=== PATIENT | male | born 1980 | race Caucasian/White ===

== ENCOUNTER → 2020-05-12 14:43 | Outpatient (BNV) | payer MEDICARE, OTHER, SELFPAY | PROVIDERS: PCP Family Medicine; Visit Provider Internal Medicine | DX: E83.119 Hemochromatosis, unspecified (principal) | CPT/HCPCS: 99213; 99214; G2211 ==

== ENCOUNTER 2020-05-21 09:37 | Outpatient (REF) | payer MEDICARE, SELFPAY | END 2020-05-21 09:38 | disposition home or self-care (01) | LOC: HO.BBR 09:37 | PROVIDERS: Visit Provider Internal Medicine | DX: Z13.89 Encounter for screening for other disorder (principal) ==

== ENCOUNTER 2020-05-21 18:05 | Emergency (ER) | payer MEDICARE, SELFPAY ==
[2020-05-21 19:56] VITALS: BP 170/100; PULSE 101; RESP 18; TEMP 37; O2SAT 100; BMI 37.3
--- NOTE | 2020-05-21 20:11 | ED.BACK ---
HPI - Back Pain/Injury General Chief Complaint: Back Pain/Injury Stated Complaint: Back Pain Time Seen by Provider: 05/21/20 20:11 Source: patient Mode of arrival: ambulatory Limitations: no limitations History of Present Illness MD elicited complaint: back pain Pertinent past history: prior back pain Onset (ago): day(s) (several but chronic in nature) Timing: constant Severity: similar to previous episodes Similar Symptoms Previously: Yes Quality: dull and aching Location: lumbar spine Radiation: left upper leg and right upper leg Exacerbating factors: movement and other (cold weather) Relieving factors: none Associated symptoms: denies other symptoms Treatments prior to arrival: NSAIDS Work related injury: No Related Data Home Medications Medication Instructions Recorded Confirmed bupropion HCl 1 tab PO QAM 05/12/20 05/12/20 cyanocobalamin (vitamin B-12) 1,000 mcg PO DAILY 05/12/20 05/12/20 levothyroxine 1 tab PO DAILY 05/12/20 05/12/20 quetiapine PO 05/12/20 sertraline 1 tab PO QAM 05/12/20 05/12/20 Previous Rx's Medication Instructions Recorded diazepam [Valium] 5 mg PO TID PRN #10 tab 05/21/20 lidocaine 1 patch TOPICAL DAILY PRN #10 ea 05/21/20 prednisone 40 mg PO DAILY 5 Days #10 tab 05/21/20 Allergies Allergy/AdvReac Type Severity Reaction Status Date / Time adhesive Allergy Intermediate RASH Unverified 02/07/20 14:58 bee pollen [BEE STINGS] Allergy Unknown UNK Unverified 02/07/20 14:58 mushroom AdvReac Intermediate VIOLENTLY Unverified 02/07/20 14:58 ILL fish Allergy Unknown Uncoded 03/31/15 00:00 mushrooms Allergy Unknown Uncoded 03/31/15 00:00 wine Allergy Unknown Uncoded 03/31/15 00:00 Review of Systems Review of Systems: Constitutional : No Weight loss, No Fever, No Chills, ENT/Mouth : No Hearing loss, No Ear Pain, No Nasal Congestion, No Sinus Pain, No Hoarseness, No sore throat, No Rhinorrhea, No Swallowing Difficulty Cardiovascular : No Chest Pain, No SOB Respiratory : No Cough, No Dyspnea Gastrointestinal : No Nausea, No Vomiting, No Diarrhea, No abdominal Pain, No Hematochezia, No Melena Genitourinary : No Dysuria, No Urinary Frequency, No Hematuria, No Urinary Incontinence, Musculoskeletal : positive back pain Skin : No Skin Lesions, No rash Neuro : No Weakness, No Numbness, No Paresthesias, no loss of bowel or bladder incontinence, no saddle anesthesia PMF Past Medical History Attestation statement: The following information was validated with the patient. Medical History Chronic back pain Degenerative disc disease Depression Hemochromatosis HTN (hypertension) Surgical History History of vasectomy Social History Social History Alcohol intake: former Smoking Status: Current every day smoker Substance Use Type: Marijuana Advance Directives: No Advance Directives Information Provided: Yes Physical Exam Vital Signs: Vital Signs: Last Vital Signs Temp 98.6 F 05/21/20 19:56 Pulse 101 H 05/21/20 19:56 Resp 18 05/21/20 19:56 BP 170/100 H 05/21/20 19:56 Pulse Ox 100 05/21/20 19:56 Body Mass Index 37.3 Appearance: Alert. Oriented X3. No acute distress. Eyes: Pupils equal, round and reactive to light. ENT: Pharynx normal. Neck: Normal inspection. Neck supple. CVS: Normal heart rate and rhythm. Pulses normal. Respiratory: No respiratory distress. Breath sounds normal. Abdomen: Soft and nontender. Back: lower ttp Skin: Skin warm and dry. Normal skin color. Normal skin turgor. Extremities: No lower extremity edema. No calf ttp Neuro: Oriented X 3. No motor deficit. No sensory deficit. bilateral patella 2/4 reflexes SILT inner thigh MDM - Back Pain/Injury MDM Narrative Medical decision making narrative: 39 yo male with chronic back pain no saddle anesthesia no b/b incontinence, no change in chronic issue - no AC therapy, no IVDA will provide supportive medications and refer to pain management Discharge Plan Discharge Clinical Impression: Lumbar back pain Patient Disposition: Home, Self-Care Instructions: Acute Low Back Pain (ED) Additional Instructions: return to ED for any worsening symptoms or concerns Prescriptions: New lidocaine 4 % adhesive patch,medicated 1 patch topical DAILY PRN (Reason: pain) Qty: 10 RF: 0 prednisone 20 mg tablet 40 mg PO DAILY 5 Days Qty: 10 RF: 0 diazepam [Valium] 5 mg tablet 5 mg PO TID PRN (Reason: muscle spasm) Qty: 10 RF: 0 No Action sertraline 100 mg tablet 1 tab PO QAM RF: 0 quetiapine 100 mg tablet PO RF: 0 levothyroxine 25 mcg tablet 1 tab PO DAILY RF: 0 bupropion HCl 150 mg tablet extended release 24 hr 1 tab PO QAM RF: 0 cyanocobalamin (vitamin B-12) 1,000 mcg Capsule 1,000 mcg PO DAILY RF: 0 Referrals: Cecilio Reese MD [Physician] - 1 week
== END 2020-05-21 20:32 | disposition home or self-care (01) ==
PROVIDERS: Emergency Provider Emergency Medicine
DX: M54.5 Low back pain (principal); I10 Essential (primary) hypertension; Z79.899 Other long term (current) drug therapy
CPT/HCPCS: 99284

== ENCOUNTER 2020-06-18 13:11 | Outpatient (REF) | payer MEDICARE, SELFPAY | END 2020-06-18 13:12 | disposition home or self-care (01) | LOC: HO.BBR 13:11 | PROVIDERS: Visit Provider Internal Medicine | DX: Z13.89 Encounter for screening for other disorder (principal) ==

== ENCOUNTER → 2020-06-20 08:47 | Outpatient (BNVA) | payer MEDICARE, SELFPAY | PROVIDERS: PCP Nurse Practitioner Primary Care; Visit Provider Nurse Practitioner Family | DX: M47.27 Other spondylosis with radiculopathy, lumbosacral region (principal); M47.816 Spondylosis without myelopathy or radiculopathy, lumbar region | CPT/HCPCS: 99202 ==

== ENCOUNTER 2020-06-27 14:46 | Outpatient (REF) | payer MEDICARE, SELFPAY ==
--- NOTE | ~2020-06-27 | MR_ITS ---
MR LUMBAR SPINE WITHOUT CONTRAST CLINICAL INFORMATION: Lumbar spondylosis with radiculopathy. COMPARISON: None available. TECHNIQUE: MRI of the lumbar spine was obtained using routine sequences without contrast. FINDINGS: There are 5 nonrib-bearing lumbar-type vertebral bodies. Slight grade 1 retrolisthesis of L2 on L3. Lumbar alignment is otherwise maintained. The vertebral body heights are preserved. There is disc desiccation at the L1-L2, L2-L3, and L5-S1 levels. There is no bone marrow edema. There are no acute fractures. The conus terminates at the L1 level. There is bilateral perinephric stranding. Multilevel endplate osteophytes. L1-L2: Small annular disc bulge and mild bilateral facet arthropathy. No central canal stenosis and no foraminal stenosis. L2-L3: Slight grade 1 retrolisthesis. Moderate bilateral facet arthropathy and ligamentum flavum thickening. No central canal stenosis. Right lateral disc osteophyte protrusion approaches and likely contacts the extraforaminal right L2 nerve root. L3-L4: There is a diffuse annular disc bulge the superimposed right foraminal/extraforaminal disc protrusion that compresses the foraminal and extraforaminal segments of the exiting right L3 nerve root. L4-L5: There is a diffuse annular disc bulge and there is moderate bilateral facet arthropathy and ligamentum flavum thickening. No central canal stenosis. Disc osteophyte and facet arthropathy result in moderate bilateral foraminal stenosis with mild mass effect on the exiting L4 nerve roots bilaterally. L5-S1: There is a shallow right paracentral disc protrusion that results in posterior deflection of the traversing right S1 nerve root within the right subarticular zone and there is a left lateral disc osteophyte protrusion that results in moderate left foraminal stenosis and mass effect on the extraforaminal left L5 nerve root. Mild to moderate right foraminal stenosis as well. MR/MR lumbar spine wo con IMPRESSION: - At L5-S1, there is a shallow right paracentral disc protrusion that results in posterior deflection of the traversing right S1 nerve root within the right subarticular zone and there is a left lateral disc osteophyte protrusion that results in moderate left foraminal stenosis and mass effect on the extraforaminal left L5 nerve root. - At L4-L5, multifactorial degenerative changes result in moderate bilateral foraminal stenosis with mild mass effect on the exiting L4 nerve roots bilaterally. - At L3-L4, there is a right foraminal/extraforaminal disc protrusion that compresses the foraminal and extraforaminal segments of the exiting right L3 nerve root. - At L2-L3 there is slight grade 1 retrolisthesis and a right lateral disc osteophyte protrusion approaches and likely contacts the extraforaminal right L2 nerve root.
== END 2020-06-27 14:47 | disposition home or self-care (01) ==
LOC: HO.MRI 14:46
PROVIDERS: Visit Provider Anesthesiology
DX: M47.27 Other spondylosis with radiculopathy, lumbosacral region (principal); M47.816 Spondylosis without myelopathy or radiculopathy, lumbar region
CPT/HCPCS: 72148

== ENCOUNTER → 2020-07-04 12:46 | Outpatient (BNVA) | payer MEDICARE, SELFPAY | PROVIDERS: PCP Nurse Practitioner Primary Care; Visit Provider Nurse Practitioner Family | DX: M47.816 Spondylosis without myelopathy or radiculopathy, lumbar region (principal); M47.27 Other spondylosis with radiculopathy, lumbosacral region | CPT/HCPCS: 99212 ==

== ENCOUNTER 2020-07-15 13:07 | Outpatient (REF) | payer MEDICARE, SELFPAY | END 2020-07-15 13:08 | disposition home or self-care (01) | LOC: HO.BBR 13:07 | PROVIDERS: Visit Provider Internal Medicine | DX: Z13.89 Encounter for screening for other disorder (principal) ==

== ENCOUNTER → 2020-08-01 13:24 | Outpatient (BNVA) | payer MEDICARE, SELFPAY | PROVIDERS: PCP Nurse Practitioner Primary Care; Visit Provider Nurse Practitioner Family | DX: M47.816 Spondylosis without myelopathy or radiculopathy, lumbar region (principal); M47.27 Other spondylosis with radiculopathy, lumbosacral region; Z79.899 Other long term (current) drug therapy | CPT/HCPCS: 99212 ==

== ENCOUNTER 2020-08-12 11:49 | Outpatient (REF) | payer MEDICARE, SELFPAY | END 2020-08-12 11:50 | disposition home or self-care (01) | LOC: HO.BBR 11:49 | PROVIDERS: Visit Provider Internal Medicine | DX: Z13.89 Encounter for screening for other disorder (principal) ==

== ENCOUNTER 2020-09-25 14:48 | Outpatient (REF) | payer MEDICARE, SELFPAY | END 2020-09-25 14:49 | disposition home or self-care (01) | LOC: HO.BBR 14:48 | PROVIDERS: Visit Provider Internal Medicine | DX: Z13.89 Encounter for screening for other disorder (principal) ==

== ENCOUNTER 2020-11-07 14:38 | Outpatient (REF) | payer MEDICARE, SELFPAY | END 2020-11-07 14:39 | disposition home or self-care (01) | LOC: HO.BBR 14:38 | PROVIDERS: Visit Provider Internal Medicine | DX: Z13.89 Encounter for screening for other disorder (principal) ==

== ENCOUNTER 2020-12-19 11:25 | Outpatient (REF) | payer MEDICARE, SELFPAY | END 2020-12-19 11:26 | disposition home or self-care (01) | LOC: HO.BBR 11:25 | PROVIDERS: Visit Provider Internal Medicine | DX: Z13.89 Encounter for screening for other disorder (principal) ==

== ENCOUNTER 2021-01-30 13:35 | Outpatient (REF) | payer MEDICARE, SELFPAY | END 2021-01-30 13:36 | disposition home or self-care (01) | LOC: HO.BBR 13:35 | PROVIDERS: Visit Provider Internal Medicine | DX: Z13.89 Encounter for screening for other disorder (principal) ==

== ENCOUNTER 2021-03-13 12:46 | Outpatient (REF) | payer MEDICARE, SELFPAY | END 2021-03-13 12:47 | disposition home or self-care (01) | LOC: HO.BBR 12:46 | PROVIDERS: Visit Provider Internal Medicine | DX: Z13.89 Encounter for screening for other disorder (principal) ==

== ENCOUNTER 2021-04-24 12:53 | Outpatient (REF) | payer MEDICARE, SELFPAY | END 2021-04-24 12:54 | disposition home or self-care (01) | LOC: HO.BBR 12:53 | PROVIDERS: Visit Provider Internal Medicine | DX: Z13.89 Encounter for screening for other disorder (principal) ==

== ENCOUNTER 2021-06-05 11:59 | Outpatient (REF) | payer MEDICARE, SELFPAY | END 2021-06-05 12:00 | disposition home or self-care (01) | LOC: HO.BBR 11:59 | PROVIDERS: Visit Provider Internal Medicine | DX: Z13.89 Encounter for screening for other disorder (principal) ==

== ENCOUNTER 2021-07-21 15:42 | Emergency (ER) | payer MEDICARE, SELFPAY ==
--- NOTE | ~2021-07-21 | US_ITS ---
EXAMINATION: US SCROTUM CLINICAL INFORMATION: Testicular pain. COMPARISON: None TECHNIQUE: A sonogram of the scrotum was performed assessing aguilar-scale appearance and color Doppler flow. Spectral Doppler analysis of the arterial and venous flow were performed in the testes bilaterally. FINDINGS: RIGHT: Right testicle measures 3.4 x 2.0 x 2.9 cm, volume 10.3 mL. No focal testicular parenchymal lesions are visualized. Spectral Doppler analysis of the arterial and venous flow is normal in the right testis. Right epididymal head is normal in size. No right hydrocele or varicocele is seen. Right epididymal Doppler flow is normal. LEFT: Left testicle measures 3.8 x 2.3 x 2.7 cm, volume 20.3 mL. There is a subcortical cyst measuring 3 x 2 x 3 mm. No focal testicular parenchymal lesions are visualized. Spectral Doppler analysis of the arterial and venous flow is normal in the left testis. Left epididymal head is normal in size. No left hydrocele or varicocele is seen. Left epididymal Doppler flow is normal. US/US scrotum doppler IMPRESSION: Essentially negative exam. A tiny subcortical left testicular cyst is present.
--- NOTE | ~2021-07-21 | US_ITS ---
EXAMINATION: US SCROTUM CLINICAL INFORMATION: Testicular pain. COMPARISON: None TECHNIQUE: A sonogram of the scrotum was performed assessing aguilar-scale appearance and color Doppler flow. Spectral Doppler analysis of the arterial and venous flow were performed in the testes bilaterally. FINDINGS: RIGHT: Right testicle measures 3.4 x 2.0 x 2.9 cm, volume 10.3 mL. No focal testicular parenchymal lesions are visualized. Spectral Doppler analysis of the arterial and venous flow is normal in the right testis. Right epididymal head is normal in size. No right hydrocele or varicocele is seen. Right epididymal Doppler flow is normal. LEFT: Left testicle measures 3.8 x 2.3 x 2.7 cm, volume 20.3 mL. There is a subcortical cyst measuring 3 x 2 x 3 mm. No focal testicular parenchymal lesions are visualized. Spectral Doppler analysis of the arterial and venous flow is normal in the left testis. Left epididymal head is normal in size. No left hydrocele or varicocele is seen. Left epididymal Doppler flow is normal. US/US scrotum IMPRESSION: Essentially negative exam. A tiny subcortical left testicular cyst is present.
[2021-07-21 17:43] VITALS: BP 153/91; PULSE 103; RESP 18; TEMP 36.7; O2SAT 96; BMI 41.3
--- NOTE | 2021-07-21 17:51 | ED_ITS ---
HPI - Male Genitourinary General Chief complaint: Urogenital-Male Stated complaint: testicle pain Time Seen by Provider: 07/21/21 15:55 Source: patient Mode of arrival: ambulatory Limitations: no limitations History of Present Illness HPI Narrative: Patient is a 40 year old male presenting to the emergency department today with scrotal pain. Patient states that for the last 25 years he has had this issue on and off where his left testicle will have a shoot pain sensation. Patient states this episode has lasted 3 weeks. Patient denies any penile discharge or drainage. Patient denies any dizziness, lightheadedness, abdominal pain, nausea, vomiting, fever, chills, blurry vision, double vision, loss of vision, chest pain, difficulty breathing, shortness of breath, back pain, night sweats, pain with urination, increased urinary frequency, increased urinary urgency, blood in his urine or stool, syncope or a near syncopal episode, recent trauma or falls, bowel incontinence, bladder incontinence, bowel retention, bladder retention, or any other complaints at this time. MD Complaint: testicle pain Onset (ago): week(s) (3) Related Data Home Medications Medication Instructions Recorded Confirmed bupropion HCl 150 mg 24 hr tablet, 1 tab PO QAM 05/12/20 08/01/20 extended release cyanocobalamin (vitamin B-12) 1,000 mcg PO DAILY 05/12/20 08/01/20 1,000 mcg capsule levothyroxine 25 mcg tablet 1 tab PO DAILY 05/12/20 08/01/20 quetiapine 100 mg tablet PO 05/12/20 08/01/20 sertraline 100 mg tablet 1 tab PO QAM 05/12/20 08/01/20 Previous Rx's Medication Instructions Recorded doxycycline hyclate 100 mg tablet 100 mg PO BID 7 Days #14 tab 07/21/21 Allergies Allergy/AdvReac Type Severity Reaction Status Date / Time adhesive Allergy Intermediate RASH Verified 07/21/21 17:43 bee pollen [BEE STINGS] Allergy Unknown UNK Verified 07/21/21 17:43 mushroom AdvReac Intermediate VIOLENTLY Verified 07/21/21 17:43 ILL gabapentin AdvReac Diarrhea Verified 07/21/21 17:43 fish Allergy Unknown unknown Uncoded 06/20/20 09:03 wine Allergy Unknown unknown Uncoded 06/20/20 09:03 Review of Systems Constitutional: Constitutional: Reports no additional constitutional complaints, Denies chills, Denies fever(s) and Denies night sweats Eyes: Eyes: Reports no additional eye complaints, Denies blurry vision, Denies change in vision, Denies diplopia, Denies eye discharge, Denies loss of vision and Denies eye pain ENT: Denies dizziness Cardiovascular: Cardiovascular: Reports no additional cardiovascular complaints, Denies chest pain, Denies lightheadedness, Denies Loss of Consciousness and Denies dyspnea Respiratory: Respiratory: Reports no additional respiratory complaints and Denies dyspnea Gastrointestinal: Gastrointestinal: Reports no additional gastrointestinal complaints, Denies abdominal pain, Denies melena, Denies hematochezia, Denies change in bowel habits and Denies change in stool character Genitourinary: Genitourinary: Reports no additional male genitourinary complaints, Denies hematuria, Denies oliguria, Denies difficulty urinating, Denies dysuria, Reports testicular pain, Denies urinary frequency, Denies urinary hesitancy, Denies urinary incontinence and Denies urinary urgency Musculoskeletal: Musculoskeletal: Reports no additional musculoskeletal complaints, Denies numbness and Denies tingling Neurologic: Denies dizziness, Denies loss of vision, Denies numbness and Denies tingling Psychiatric: Psychiatric: Reports no additional psychiatric complaints Endocrine: Endocrine: Reports no additional endocrine complaints Hematologic/Lymphatic: Hematologic/Lymphatic: Reports no additional hematologic/lymphatic complaints Allergic/Immunologic: Allergic/Immunologic: Reports no additional allergic/immunologic complaints [facility] Past Medical History Attestation statement: The following information was validated with the patient. Source: old records reviewed Medical History Chronic back pain Degenerative disc disease Depression Hemochromatosis HTN (hypertension) Surgical History History of vasectomy Social History Social History Alcohol intake: unknown Substance Use Type: Marijuana Advance Directives: No Advance Directives Information Provided: No Physical Exam Vital Signs: Vital Signs: Last Vital Signs Temp 98.1 F 07/21/21 17:43 Pulse 103 H 07/21/21 17:43 Resp 18 07/21/21 17:43 BP 153/91 H 07/21/21 17:43 Pulse Ox 96 07/21/21 17:43 BMI result Body Mass Index 41.3 Const: General: cooperative, no acute distress, alert and awake Nutritional Appearance: well nourished Orientation/consciousness: patient oriented x3 Limitations: no limitations HENMT: Head: Yes normal to inspection and Yes atraumatic Ears: hearing grossly normal bilaterally and external ears normal General nose exam: Normal external nose present, no nasal discharge noted and no epistaxis Face and sinus: Yes normal facial exam, No abrasion and No laceration Mouth: Normal oral and palatal mucosa present, no drooling and no muffled voice Eyes: General: appearance normal, both eyes and all related structures Periorbital: periorbital findings normal Eyelids: Yes eyelids normal Conjunctivae: conjunctivae normal Pupils: Equal, round and reactive pupils present EOM: EOMs intact bilaterally Neck: Neck: Yes normal visual inspection, Yes full ROM and Yes no lymphadenopathy Chest: Chest palpation & inspection: normal inspection of the chest Resp: Effort & Inspection: normal respiratory effort and able to speak in complete sentences GI: Inspection: Yes normal to inspection : Male General Exam: Yes normal external exam, No edema, No erythema, No inguinal lymphadenopathy, No Genital lesions present and No tenderness Penis: No Genital lesions present Neuro: General: patient oriented x3 and moves all extremities Cranial nerves: Yes Equal, round and reactive pupils present Cognition (Neuro): normal cognition Motor exam (neuro): 5/5 motor strength present throughout Sensory Exam: Normal double simultaneous stimulation for sensation Coordination: [id number] test normal Extrem: General: Yes normal to inspection, Yes full ROM and Yes capillary refill normal Psych: Appearance: grossly normal Mental Status: mental status grossly normal Affect: normal affect Attitude: cooperative Thought process: Normal thought process present Thought content: Normal thought content present Insight: Good insight present (Psych) MDM - Male Genitourinary MDM Narrative Medical decision making narrative: Patient is a 40 year old male presenting to the emergency department today with testicular pain. Patient's physical exam was unremarkable. Patient's urine is still pending at this time. Patient's EKG was unremarkable. Patient's scrotal ultrasound showed a cyst but was otherwise unremarkable. I explained my physical exam findings as well as all test results to the patient. I answered all questions asked by the patient. I explained to the patient that this is very likely epididymitis and that we will treat him accordingly. I stressed the importance of the patient taking his medication as prescribed. I stressed the importance of the patient following up with his primary care provider. I stressed the importance of the patient returning to the emergency department immediately if his symptoms were to worsen or if he were to develop any dizziness, shortness of breath, difficulty breathing, chest pain, blurry vision, loss of vision, nausea, vomiting, abdominal pain, fever, chills, back pain, or any other complaints. Patient verbalized agreement and understanding with this treatment plan and discharge. Differential Diagnosis Differential diagnosis: Likely urinary tract infection, urethritis and epididymitis Medical Records Attestation: I reviewed the patient's medical records. Imaging Data Scrotal US: Attestation: I personally reviewed and interpreted this imaging study as follows: Radiologist's impression: EXAMINATION: US SCROTUM CLINICAL INFORMATION: Testicular pain. COMPARISON: None TECHNIQUE: A sonogram of the scrotum was performed assessing aguilar-scale appearance and color Doppler flow. Spectral Doppler analysis of the arterial and venous flow were performed in the testes bilaterally. FINDINGS: RIGHT: Right testicle measures 3.4 x 2.0 x 2.9 cm, volume 10.3 mL. No focal testicular parenchymal lesions are visualized. Spectral Doppler analysis of the arterial and venous flow is normal in the right testis. Right epididymal head is normal in size. No right hydrocele or varicocele is seen. Right epididymal Doppler flow is normal. LEFT: Left testicle measures 3.8 x 2.3 x 2.7 cm, volume 20.3 mL. There is a subcortical cyst measuring 3 x 2 x 3 mm. No focal testicular parenchymal lesions are visualized. Spectral Doppler analysis of the arterial and venous flow is normal in the left testis. Left epididymal head is normal in size. No left hydrocele or varicocele is seen. Left epididymal Doppler flow is normal. US/US scrotum doppler IMPRESSION: Essentially negative exam. A tiny subcortical left testicular cyst is present. Dictated By: JULIANE KAUR MD Signed By: Electronically signed by JULIANE KAUR MD 07/21/21 7798 Discharge Plan Discharge Clinical Impression: Epididymitis Patient Disposition: Home, Self-Care Instructions: Epididymitis (ED) Additional Instructions: Follow up with your primary care provider. Return to the emergency department immediately if your symptoms worsen or if you develop any dizziness, shortness of breath, difficulty breathing, chest pain, blurry vision, loss of vision, nausea, vomiting, abdominal pain, fever, chills, back pain, or any other complaints. Prescriptions: New doxycycline hyclate 100 mg tablet 100 mg PO BID 7 Days Qty: 14 0RF No Action sertraline 100 mg tablet 1 tab PO QAM 0RF quetiapine 100 mg tablet PO 0RF levothyroxine 25 mcg tablet 1 tab PO DAILY 0RF bupropion HCl 150 mg tablet extended release 24 hr 1 tab PO QAM 0RF cyanocobalamin (vitamin B-12) 1,000 mcg Capsule 1,000 mcg PO DAILY 0RF Print Language: [place] Citizen
--- NOTE | 2021-07-21 18:44 | PC.NURSE ---
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
[2021-07-21 18:54] LABS: Appearance Urine CLEAR; Color Urine YELLOW; Glucose Urine UA NEG (NEG); Leukocyte Esterase Urine NEG (NEG); Nitrite Urine NEG (NEG); Specific Gravity - Urine 1.015 (1.005-1.025); UACC Culture Trigger NO; Urine Blood 1+ (NEG); Urine Ketones NEG (NEG); Urine Protein NEG (NEG-TRACE)
[2021-07-21] MEDS: cefTRIAXone sodium 500 MG, Lidocaine HCl 1 % MPF 1 ML IM (18:54)
[2021-07-21 19:04] LABS: Mucus Urine 1+ /LPF; Squamous Epithelial Cell Urine TRACE /LPF; WBC Urine 0-2 /HPF (0-4)
== END 2021-07-21 19:15 | disposition home or self-care (01) ==
PROVIDERS: Physician Assistant; Emergency Provider Emergency Medicine
DX: N45.1 Epididymitis (principal); N50.812 Left testicular pain; R10.2 Pelvic and perineal pain; Z79.899 Other long term (current) drug therapy
CPT/HCPCS: 76870; 81001; 93975; 96372; 99283; 99284; J0696

== ENCOUNTER 2021-08-18 11:47 | Outpatient (REF) | payer MEDICARE, SELFPAY ==
[2021-08-18 13:09] LABS: Estimated Average Glucose 103 mg/dL; Hemoglobin A1c % 5.2 %
[2021-08-18 13:25] LABS: Alanine Aminotransferase 30 U/L (0-40); Albumin Level 4.5 g/dL (3.5-5.0); Alkaline Phosphatase 127 U/L (39-117); Anion Gap 12 (12-20); Aspartate Amino Transferase 21 U/L (5-37); Bilirubin Total 0.4 mg/dL (0.0-1.0); Blood Urea Nitrogen 11 mg/dL (9-16); Calcium 9.9 mg/dL (8.4-10.2); Carbon Dioxide 25 mmol/L (22-29); Chloride 106 mmol/L (96-108); Cholesterol 180 mg/dL; Estimated Glomerular Filt Rate > 60; Glucose Random 75 mg/dL (60-115); HDL Cholesterol 37 mg/dL; LDL Cholesterol Calculated 108 mg/dl; Potassium 4.4 mmol/L (3.3-5.1); Sodium 139 mmol/L (135-145); Total Protein 7.3 g/dL (6.5-8.0); Triglycerides 179 mg/dL
[2021-08-18 13:26] LABS: Lactate Dehydrogenase 183 U/L (118-273)
[2021-08-18 13:31] LABS: Thyroid Stimulating Hormone 15.72 uIU/mL (0.32-4.0)
[2021-08-18 13:34] LABS: Vitamin B12 840 pg/mL (200-900)
[2021-08-18 14:05] LABS: CT PCR NOT DETECTED (Not Detect.); NG PCR NOT DETECTED (Not Detect.)
[2021-08-19 04:28] LABS: Syphilis Screen Nonreactive (Nonreactive)
[2021-08-20 22:25] LABS: Thyroid Peroxidase Antibodies 460 IU/mL (<9)
== END 2021-08-18 11:48 | disposition home or self-care (01) ==
LOC: HO.LAB 11:47
PROVIDERS: Visit Provider Internal Medicine
DX: Z11.3 Encounter for screening for infections with a predominantly sexual mode of transmission (principal); E03.8 Other specified hypothyroidism; E83.110 Hereditary hemochromatosis; I10 Essential (primary) hypertension
CPT/HCPCS: 80053; 80061; 82607; 83036; 83615; 84443; 86376; 86780; 87491; 87591

== ENCOUNTER → 2021-10-30 14:58 | Outpatient (BNVA) | payer MEDICARE, SELFPAY | PROVIDERS: PCP Internal Medicine; Visit Provider Urology | DX: N50.812 Left testicular pain (principal); N52.9 Male erectile dysfunction, unspecified | CPT/HCPCS: 64425; 99202 ==

== ENCOUNTER 2021-12-29 11:58 | Outpatient (REF) | payer MEDICARE, SELFPAY | END 2021-12-29 11:59 | disposition home or self-care (01) | LOC: HO.BBR 11:58 | PROVIDERS: Visit Provider Internal Medicine | DX: Z13.89 Encounter for screening for other disorder (principal) ==

== ENCOUNTER 2022-01-01 12:55 | Outpatient (REF) | payer MEDICARE, SELFPAY ==
--- NOTE | ~2022-01-01 | US_ITS ---
EXAMINATION: US ABDOMEN COMPLETE CLINICAL INFORMATION: Abdominal pain. COMPARISON: CT abdomen and pelvis 04/30/2015. TECHNIQUE: Real-time imaging of the abdominal viscera. FINDINGS: PANCREAS: Normal. ABDOMINAL AORTA: The proximal, mid, and distal segments are normal in caliber. INFERIOR VENA CAVA: Visualized portions are normal. LIVER: Normal. The liver is normal in size. The liver contour is normal. Parenchymal echogenicity is normal. No focal hepatic lesion. There is no intrahepatic biliary duct dilatation seen. GALLBLADDER: Normal. The gallbladder is physiologically distended without evidence of stones, sludge, polyps, wall thickening or pericholecystic fluid. COMMON BILE DUCT: Normal in caliber measuring 0.3 cm in diameter. RIGHT KIDNEY: Normal. No hydronephrosis. No renal calculi or focal parenchymal lesions. The kidney measures 10.5 cm in maximum dimension. LEFT KIDNEY: There is a 2 cm hypoechoic lesion in the lateral mid left kidney with question small calcification. This may represent a complex cyst when compared with previous CT April 2015. This has internal echoes that are difficult to clear and is increased in size from [address] scan. No hydronephrosis. No renal calculi. The kidney measures 11.0 cm in maximum dimension. SPLEEN: Normal. The spleen measures 9.7 cm in maximum dimension. FREE FLUID: None. US/US abdomen complete IMPRESSION: 2 cm hypoechoic lesion in the lateral midpole of the left kidney. When compared with previous CT from April 2015 this may represent a complex cyst. This is increased in size from [address] Follow up dedicated renal CT or MRI imaging with and without contrast is recommended. Findings will be communicated by the [facility] work flow envelope addresser.
== END 2022-01-01 12:56 | disposition home or self-care (01) ==
LOC: HO.US 12:55
PROVIDERS: Visit Provider Internal Medicine
DX: R10.9 Unspecified abdominal pain (principal)
CPT/HCPCS: 76700

== ENCOUNTER → 2022-02-02 15:27 | Outpatient (BNVA) | payer MEDICARE, SELFPAY | PROVIDERS: PCP Internal Medicine; Visit Provider Urology | DX: N52.01 Erectile dysfunction due to arterial insufficiency (principal); N52.9 Male erectile dysfunction, unspecified | CPT/HCPCS: 99212 ==

== ENCOUNTER 2022-03-30 10:12 | Outpatient (REF) | payer MEDICARE, SELFPAY | END 2022-03-30 10:13 | disposition home or self-care (01) | LOC: HO.BBR 10:12 | PROVIDERS: Visit Provider Internal Medicine | DX: Z13.89 Encounter for screening for other disorder (principal) ==

== ENCOUNTER 2022-04-12 06:03 | Day surgery (SDC) | payer MEDICARE, SELFPAY ==
--- NOTE | 2022-04-09 09:54 | HO.ANESPROP2 ---
Documented by User: Johanny Zafar NP 04/09/22 09:59 HPI - Anesthesia Eval Consult details Narrative: 41yo M for Left Microscopic Denervation Testicle Hemochromatosis with planned Q4 months therapeutic phlebotomies PMFSH Active Problems Active Problems: All Active Problems (Updated 02/02/22 @ 13:53 by Lisa Richardson MD) Orchalgia (Acute) Erectile dysfunction (Acute) Facet arthropathy, lumbar (Acute) Spondylosis of lumbosacral spine with radiculopathy (Acute) Hemochromatosis (Chronic) Past Medical History Medical History (Updated 04/12/22 @ 08:31 by Дмитрий Chapa MD) Chronic back pain Degenerative disc disease Depression Hemochromatosis HTN (hypertension) Family History Family History Mother Diabetes Father Liver cancer Bone cancer Liver disease Surgical History Surgical History History of vasectomy Social History Social History Household Members: Friend(s) Housing: House Are you a primary sub acute care nurse to a significant other at home: No Do you presently have visiting nurse or other home services: No Alcohol intake: unknown Patient Tobacco Use Status: Current everyday Tobacco user Tobacco use type: Cigarette Cigarette Packs Per Day: 1 Cigarettes Per Day: 10 Use of substances other than those prescribed or required for medical reasons: Yes Substance Use Type: Marijuana Are you DNR?: No Advance Directives: No Advance Directives Information Provided: Yes service: No Current occupational status: unemployed Meds Allergies Allergy/AdvReac Type Severity Reaction Status Date / Time adhesive Allergy Intermediate RASH Verified 10/30/21 15:08 bee pollen [BEE STINGS] Allergy Unknown UNK Verified 10/30/21 15:08 mushroom AdvReac Intermediate VIOLENTLY Verified 10/30/21 15:08 ILL gabapentin AdvReac Diarrhea Verified 10/30/21 15:08 fish Allergy Unknown unknown Uncoded 10/30/21 15:08 wine Allergy Unknown unknown Uncoded 10/30/21 15:08 Home Medications Medication Instructions Recorded Confirmed Last Taken Type levothyroxine 25 mcg tablet 1 tab PO DAILY 05/12/20 04/12/22 Unknown History acetaminophen 500 mg tablet 500 mg PO Q6H PRN Pain 08/18/21 04/12/22 Unknown History hydrochlorothiazide 25 mg tablet 25 mg PO DAILY 08/18/21 04/12/22 Unknown History tamsulosin 0.4 mg capsule 0.4 mg PO DAILY 10/30/21 04/12/22 Unknown History Exam Exam Date and Time: April 09, 2022 0954 Pertinent Lab Results Pertinent Lab Results: Laboratory Tests 02/02/22 02/02/22 14:17 14:17 WBC 10.6 Hgb 16.1 Hct 47.2 Plt Count 270 Sodium 141 Potassium 4.2 Chloride 106 Carbon Dioxide 23 BUN 15 Creatinine 0.99 Assessment and Plan Assessment Anesthesia Assessment: Chart Reviewed Documented by User: Дмитрий Chapa MD 04/12/22 08:34 [facility] Past Medical History Medical History (Updated 04/12/22 @ 08:31 by Дмитрий Chapa MD) Chronic back pain Degenerative disc disease Depression Hemochromatosis HTN (hypertension) Family History Family History Mother Diabetes Father Liver cancer Bone cancer Liver disease Family history of problems with anesthesia: No Surgical History Surgical History History of vasectomy History of Problems with Anesthesia: No Social History Social History Household Members: Friend(s) Housing: House Are you a primary sub acute care nurse to a significant other at home: No Do you presently have visiting nurse or other home services: No Alcohol intake: unknown Patient Tobacco Use Status: Current everyday Tobacco user Tobacco use type: Cigarette Cigarette Packs Per Day: 1 Cigarettes Per Day: 10 Use of substances other than those prescribed or required for medical reasons: Yes Substance Use Type: Marijuana Are you DNR?: No Advance Directives: No Advance Directives Information Provided: Yes service: No Current occupational status: unemployed Meds Allergies Allergy/AdvReac Type Severity Reaction Status Date / Time adhesive Allergy Intermediate RASH Verified 10/30/21 15:08 bee pollen [BEE STINGS] Allergy Unknown UNK Verified 10/30/21 15:08 mushroom AdvReac Intermediate VIOLENTLY Verified 10/30/21 15:08 ILL gabapentin AdvReac Diarrhea Verified 10/30/21 15:08 fish Allergy Unknown unknown Uncoded 10/30/21 15:08 wine Allergy Unknown unknown Uncoded 10/30/21 15:08 Home Medications Medication Instructions Recorded Confirmed Last Taken Type levothyroxine 25 mcg tablet 1 tab PO DAILY 05/12/20 04/12/22 Unknown History acetaminophen 500 mg tablet 500 mg PO Q6H PRN Pain 08/18/21 04/12/22 Unknown History hydrochlorothiazide 25 mg tablet 25 mg PO DAILY 08/18/21 04/12/22 Unknown History tamsulosin 0.4 mg capsule 0.4 mg PO DAILY 10/30/21 04/12/22 Unknown History Exam Airway Mallampati Class: IV TM Dist: >3cm Neck ROM: Full Heart: rrr Lungs: clear Assessment and Plan Final Anesthetic Review Family History of Problems with Anesthesia: No History of Problems with Anesthesia: No NPO: Yes ASA Class: II Final Preanesthetic Review: No Changes in Pt Med Stat, Consent Obtained/Reviewed and Anes Risks/Benef Reviewed Procedure Risk: Low Anesthetic Plan Anesthetic Plan: GA Disposition: Standard PACU
[2022-04-12 06:41] VITALS: BMI 36.6
[2022-04-12 06:47] VITALS: BP 122/73; PULSE 82; RESP 16; TEMP 36.2; O2SAT 96
[2022-04-12] MEDS: Lactated Ringers 1,000 ML 100 ML IVCONT (07:00)
[2022-04-12] MEDS: Acetaminophen 325 MG TABLET 650 MG PO (07:33)
--- NOTE | 2022-04-12 08:15 | MHC.SHP ---
Pre-Procedural Eval Section A Date of Service: 04/12/22 The patient is an INPATIENT: No Changes since office visit: No Cold of Flu in the past 2 weeks, No New Medical Problems, No Changes in Medication and No Patient answered all questions The History & Physical has been completed within 30 days and I have reviewed it.: No Section B Chief Complaint: Testicular pain, unspecified Details of Present Illness: Left orchalgia. Responded to injection in office. Here for microscopic denervation. Relevant Family History (Specify if Yes): No Relevant Social History: None Present Medications: see Short Stay Collaborative assessment Medical History: No relevant PMH History of Previous Operations: No relevant previous surgery Allergies: Allergies Allergy/AdvReac Type Severity Reaction Status Date / Time adhesive Allergy Intermediate RASH Verified 10/30/21 15:08 bee pollen [BEE STINGS] Allergy Unknown UNK Verified 10/30/21 15:08 mushroom AdvReac Intermediate VIOLENTLY Verified 10/30/21 15:08 ILL gabapentin AdvReac Diarrhea Verified 10/30/21 15:08 fish Allergy Unknown unknown Uncoded 10/30/21 15:08 wine Allergy Unknown unknown Uncoded 10/30/21 15:08 Review of Systems Sugical H&P ROS: Negative: Constitution, Cardiovascular, Respiratory, Neurological, Psychiatric, Hem-Onc, Allergic/Immunologic, Gastrointestinal, Genitourinary, Musculoskeletal, Integumentary, Endocrine and Eyes/Ears/Nose/Throat Exam Surgical H&P Exam: Normal: HEENT, Normal: Heart, Normal: Lungs, Normal: Extremities, Normal: Abdomen, Normal: Skin and Normal: Neurological Plan Diagnosis/Plan: Unchanged (Left microscopic denervation testicular cord) I have reviewed the history and physical and performed a pertinent physical examination on my patient. No changes have occurred unless specified.
[2022-04-12 10:15] VITALS: BP 97/63; PULSE 75; RESP 16; TEMP 36.1; O2SAT 97
--- NOTE | 2022-04-12 10:15 | W.PM.OPN ---
Operative Note Operative Note Date of Service: 04/12/22 Narrative: PreOperative Diagnosis: left persistent testicular pain Post Operative Diagnosis: Same Procedure: left microscopic inguinal denervation Surgeon: Dr Mario Archibald Anesthesia: General Indications for procedure: Persistent left testicular pain. In the office responded well to local anesthetic infiltration in the cord. Was offered microscopic inguinal cord denervation. Understands this is 80% successful and primary risk is loss of testicle. Procedure: After informed consent was verified the patient was brought to the operating room and placed in a supine position. Anesthesia was administered per protocol. The patient was shaved and prepped and draped in a sterile fashion. Safety pause time-out was performed. Antibiotics had been given. The left inguinal canal was palpated. This was marked and then a 4 cm incision was marked approximately 1 cm distal to the inguinal canal. The skin was infiltrated with local anesthetic. Using a 15 blade skin was incised and dissection was performed in the subcutaneous tissue. Dissection was performed until inguinal cord was isolated. evidence of prior laparoscopic hernia repair noted. The cord was delivered through the incision to the skin surface. A tongue depressor was then used to elevate the cord from the incision. The operating microscope was brought into place. Dissection was then performed on the cord. Muscle fibers surrounding the cord were all dissected. This was performed using bipolar cautery and scissors. The overlying tissue was removed and the cord packets exposed. Fascia was cauterized and dissected from the packet. The vas deferens packet was dissected. The primary vascular packet was then tagged with a vessel loop and retracted from the field. Dissection and denervation were performed on the 3 identified areas including the cremasteric muscle layer, lucille vasal tissues, and the posterior periarterial - lipomatous tissue. Care was taken to leave all veins and feeding arterial vessels intact. Doppler ultrasound was available to assist with identification. Following the dissection and cautery of the posterior periarterial packet the vas deferens packet was identified and the cord was isolated. Using an ocular blade the cord was denervated for approximately 1-1.5 cm. The blade was swept across the surface of the vas deferens small bleeding areas were controlled using bipolar cautery When this was complete the cord was examined. The tongue depressor was removed and the cord allowed to sit in its normal position. The area was irrigated with saline. Reapproximation of deep tissue was performed using interrupted 3-0 Vicryl. Skin was reapposed using a 4-0 running Monocryl. Incisions were closed with Dermabond He tolerated the procedure well and was extubated in operating room and transferred in stable condition to the recovery area.
[2022-04-12 10:20] VITALS: BP 102/64; PULSE 74; RESP 16; O2SAT 100
[2022-04-12 10:25] VITALS: BP 126/49; PULSE 83; RESP 18; O2SAT 99
[2022-04-12 10:30] VITALS: BP 126/81; PULSE 75; RESP 18; TEMP 36.2; O2SAT 99
[2022-04-12] MEDS: Ketorolac Tromethamine 15 MG/ML VIAL IVPUSH (10:30)
[2022-04-12] MEDS: oxyCODONE HCl Immed Release 5 MG TABLET PO (10:30)
[2022-04-12 10:45] VITALS: BP 123/83; PULSE 77; RESP 18; TEMP 36.1; O2SAT 99
== END 2022-04-12 11:32 | disposition home or self-care (01) ==
PROVIDERS: PCP Internal Medicine; Visit Provider Urology
PROC: (CPT 55899; principal; 2022-04-12 08:10)
DX: N50.819 Testicular pain, unspecified (principal); N52.01 Erectile dysfunction due to arterial insufficiency; I10 Essential (primary) hypertension; E83.119 Hemochromatosis, unspecified; G89.29 Other chronic pain; M54.9 Dorsalgia, unspecified; Z79.899 Other long term (current) drug therapy; Z91.040 Latex allergy status; F17.210 Nicotine dependence, cigarettes, uncomplicated; F12.90 Cannabis use, unspecified, uncomplicated
CPT/HCPCS: 55899; 69990; J0690; J1100; J1885; J2250; J2795; J3010

== ENCOUNTER 2022-04-20 10:24 | Outpatient (REF) | payer MEDICARE, SELFPAY ==
--- NOTE | ~2022-04-20 | US_ITS ---
EXAMINATION: US SCROTUM CLINICAL INFORMATION: N50.819 - Testicular pain, unspecified. Additional history from patient notes hysterectomy 04/13/2022. Persistent swelling on left. COMPARISON: Scrotal ultrasound with Doppler 07/21/2021. TECHNIQUE: A sonogram of the scrotum was performed assessing aguilar-scale appearance and color Doppler flow. Spectral Doppler analysis of the arterial and venous flow were performed in the testes bilaterally. FINDINGS: RIGHT: Right testicle measures 3.7 x 1.9 x 2.6 cm, volume 9.4 mL. No focal testicular parenchymal lesions are visualized. Spectral Doppler analysis of the arterial and venous flow is normal in the right testis. Right epididymal head is normal in size. No right hydrocele or varicocele is seen. Right epididymal Doppler flow is normal. LEFT: Left testicle measures 4.2 x 2.4 x 2.9 cm, volume 15.2 mL. No focal testicular parenchymal lesions are visualized. 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 Spectral Doppler analysis of the arterial and venous flow is normal in the left testis. Left epididymal head is normal in size. There is a small left hydrocele. There is a simple cyst in the epididymal head measuring approximately 7 x 4 mm. Question of small hyperechoic scrotal benedict. Left epididymal Doppler flow is normal. US/US scrotum IMPRESSION: 1. No torsion. Normal intratesticular color flow. 2. Small left hydrocele. Small left epididymal head cyst 7 x 4 mm. Probable small left scrotal benedict.
== END 2022-04-20 10:25 | disposition home or self-care (01) ==
LOC: HO.US 10:24
PROVIDERS: PCP Internal Medicine; Visit Provider Urology
DX: N50.819 Testicular pain, unspecified (principal)
CPT/HCPCS: 76870

== ENCOUNTER → 2022-04-22 13:29 | Outpatient (BNVA) | payer MEDICARE, SELFPAY | PROVIDERS: PCP Internal Medicine; Visit Provider Urology | DX: N50.819 Testicular pain, unspecified (principal) | CPT/HCPCS: 99212 ==

== ENCOUNTER 2022-04-26 15:08 | Emergency (ER) | payer MEDICARE, SELFPAY ==
--- NOTE | ~2022-04-26 | CT_ITS ---
EXAMINATION: CT ABDOMEN AND PELVIS WITHOUT CONTRAST CLINICAL INFORMATION: Left inguinal pain COMPARISON: CT abdomen pelvis with IV contrast 04/30/2015 TECHNIQUE: Multidetector volumetric imaging was performed from the superior aspect of the liver through the pubic symphysis. Sagittal and coronal reformatted images were obtained on the technologist's workstation. This CT examination was performed using dose optimization techniques as appropriate, variously including the following: *Automated exposure control *Adjustment of mA and/or kV according to patient size (this includes techniques or standardized protocols for targeted exams where dose is matched to indication/reason for exam; i.e. extremities or head) *Use of iterative reconstruction technique DLP: 1298 mGy-cm FINDINGS: LUNG BASES: The visualized lung bases are unremarkable. LIVER, GALLBLADDER AND BILIARY TREE: The liver is normal in size, shape, and attenuation. No focal hepatic lesion or biliary ductal dilatation is present. The gallbladder is unremarkable with no evidence of radiopaque gallstones, gallbladder wall thickening, or obvious pericholecystic inflammatory changes. PANCREAS: Unremarkable. SPLEEN: Unremarkable. ADRENAL GLANDS: Unremarkable. KIDNEYS AND URETERS: The kidneys are normal in size, shape, and attenuation. No hydronephrosis, hydroureter, or calculi seen. No perinephric stranding. There is 7 mm hypodensity mid pole left kidney cortex. Previously visualized cyst midpole left kidney is not seen at this time. BLADDER: Unremarkable. GASTROINTESTINAL TRACT: There is scattered stool and gas seen throughout the colon without distention. The small bowel loops are normal caliber. Appendix is normal caliber. No inflammatory process seen in the abdomen. ABDOMINAL WALL: No significant hernia is appreciated. LYMPH NODES: Normal. VASCULAR: Unremarkable. PELVIC VISCERA: Surrounding and compressing the left inguinal canal there is a bilobed cystic lesion measuring 7.7 x 5.9 x 9.4 cm in the left inguinal region. There is fat stranding in the surrounding soft tissues. The right inguinal canal is normal. OSSEOUS STRUCTURES: Moderate ventral spondylosis lower dorsal and mild spondylosis mid lumbar spine. CT/CT abdomen pelvis wo IV con IMPRESSION: Moderate size bilateral cystic collection in the left groin surrounding the left inguinal canal likely seroma from previous intervention or injury. The findings are new since previous CT abdomen exam 04/30/2015. Hyperdense lesion in the midpole cortex left kidney question small calcification. Previously visualized cyst midpole left kidney is not seen at this time. Fleischner guidelines were followed.
[2022-04-26 17:31] VITALS: BP 146/97; PULSE 92; RESP 18; TEMP 36.3; O2SAT 97; BMI 35.2
--- NOTE | 2022-04-26 17:31 | ED.GENADULT ---
HPI - General Adult General Chief complaint: General Medical Stated complaint: post surgery swollen area Time Seen by Provider: 04/26/22 23:31 Related Data Home Medications Medication Instructions Recorded Confirmed levothyroxine 25 mcg tablet 1 tab PO DAILY 05/12/20 04/22/22 acetaminophen 500 mg tablet 500 mg PO Q6H PRN Pain 08/18/21 04/12/22 hydrochlorothiazide 25 mg tablet 25 mg PO DAILY 08/18/21 04/22/22 tamsulosin 0.4 mg capsule 0.4 mg PO DAILY 10/30/21 04/22/22 duloxetine 30 mg capsule,delayed 0 mg PO 04/29/22 release Previous Rx's Medication Instructions Recorded tadalafil 10 mg tablet 10 mg PO DAILY sexual activity 90 02/02/22 days #90 tabs hydrocodone 5 mg-acetaminophen 325 1 tab PO Q6H pain 14 days #56 tabs 04/22/22 mg tablet Allergies Allergy/AdvReac Type Severity Reaction Status Date / Time adhesive Allergy Intermediate RASH Verified 04/29/22 09:28 bee pollen [BEE STINGS] Allergy Unknown UNK Verified 04/29/22 09:28 mushroom AdvReac Intermediate VIOLENTLY Verified 04/29/22 09:28 ILL gabapentin AdvReac Diarrhea Verified 04/29/22 09:28 fish Allergy Unknown unknown Uncoded 04/29/22 09:28 wine Allergy Unknown unknown Uncoded 04/29/22 09:28 [facility] Past Medical History Medical History Chronic back pain Degenerative disc disease Depression Hemochromatosis HTN (hypertension) Surgical History History of vasectomy Family History Family History Mother Diabetes Father Liver cancer Bone cancer Liver disease Social History Social History Household Members: Friend(s) Housing: House Are you a primary clinical manager home care to a significant other at home: No Do you presently have visiting nurse or other home services: No Alcohol intake: unknown Patient Tobacco Use Status: Current everyday Tobacco user Tobacco use type: Cigarette Cigarette Packs Per Day: 1 Cigarettes Per Day: 10 Substance Use Type: Marijuana service: No Current occupational status: unemployed Physical Exam ED Vital Signs: BMI result Body Mass Index 35.2 Course Course Course Narrative: 41M p/w testicular swelling after surgery by Dr Hanna on 04/12. Denies fevers, chills, dysuria.....LEFT testicle with swelling at the incision without purulent drainage. Still passing flatus and denies N/V VS Reviewed GEN: NAD HEENT: no acute findings PuL: CTAB CVS: RRR, no murmurs ABD: swelling at lt inguinal jenise for hernia - Labs, CT Discharge Plan Discharge Clinical Impression: Swollen testicle Patient Disposition: Elopement Prescriptions: No Action levothyroxine 25 mcg tablet 1 tab PO DAILY acetaminophen 500 mg Tablet 500 mg PO Q6H PRN (Reason: Pain) hydrochlorothiazide 25 mg Tablet 25 mg PO DAILY tadalafil 10 mg tablet 10 mg PO DAILY 90 Days Qty: 90 0RF hydrocodone-acetaminophen 5-325 mg tablet 1 tab PO Q6H 14 Days Qty: 56 0RF Rx Instructions: Partial Fill upon patient request. tamsulosin 0.4 mg capsule 0.4 mg PO DAILY duloxetine 30 mg capsule,delayed release(/EC) 0 mg PO Discharge Date/Time: 04/27/22 01:06
[2022-04-26 19:34] LABS: MANUAL DIFF FLAG NO
[2022-04-26 19:43] LABS: Basophils Absolute Auto 0.1 X10*3/uL (0.0-0.2); Basophils Percent Auto 0.6 % (0-2); Eosinophils Absolute Auto 0.2 X10*3/uL (0.0-0.4); Eosinophils Percent Auto 1.2 % (0-4); Hematocrit 48.2 % (42.0-52.0); Hemoglobin 16.3 g/dl (14.0-18.0); Imm Gran Abs Auto 0.06 X10*3/uL (0.00-0.03); Imm Gran Pct Auto 0.4 % (0.0-0.4); Lymphocytes Absolute Auto 3.3 X10*3/uL (1.2-4.9); Lymphocytes Percent Auto 20.2 % (20-40); Mean Corpuscular HGB Conc 33.8 g/dl (31.0-36.0); Mean Corpuscular Hemoglobin 30.5 pg (27.0-33.0); Mean Corpuscular Volume 90.1 fL (80.0-98.0); Mean Platelet Volume 9.9 fL (9.4-12.4); Monocytes Percent Auto 6.1 % (2-11); Neutrophils Absolute Auto 11.6 x10*3/uL (2.0-8.3); Neutrophils Percent Auto 71.5 % (45-73); Platelet Count 256 X10*3/uL (160-400); Red Blood Count 5.35 X10*6/uL (4.60-5.80); Red Cell Distribution Width 14.5 % (11.0-16.0); White Blood Count 16.3 X10*3/uL (4.8-10.8)
[2022-04-26 19:56] LABS: Alanine Aminotransferase 21 U/L (0-40); Albumin Level 4.4 g/dL (3.5-5.0); Alkaline Phosphatase 106 U/L (39-117); Anion Gap 14 (12-20); Aspartate Amino Transferase 14 U/L (5-37); Bilirubin Total 0.6 mg/dL (0.0-1.0); Blood Urea Nitrogen 10 mg/dL (9-16); Calcium 9.6 mg/dL (8.4-10.2); Carbon Dioxide 26 mmol/L (22-29); Chloride 106 mmol/L (96-108); Creatinine Clr Calc Pharmacy 131.5; Estimated Glomerular Filt Rate > 60; Glucose Random 85 mg/dL (60-115); Potassium 3.9 mmol/L (3.3-5.1); Sodium 142 mmol/L (135-145); Total Protein 7.1 g/dL (6.5-8.0)
--- NOTE | 2022-04-27 00:52 | PC.NURSE ---
Pt called for triage, pt not in waiting room at this time.
== END 2022-04-27 01:06 | disposition left against medical advice (07) ==
LOC: HO.ED 04-27 00:26
PROVIDERS: Student in an Organized Health Care Education/Training Program; Emergency Provider Emergency Medicine
DX: R10.30 Lower abdominal pain, unspecified (principal); Z79.899 Other long term (current) drug therapy
CPT/HCPCS: 36415; 74176; 80053; 85025; 99281; 99284

== ENCOUNTER → 2022-04-29 09:27 | Outpatient (BNVA) | payer MEDICARE, SELFPAY | PROVIDERS: Visit Provider Nurse Practitioner Family | DX: N99.842 Postprocedural seroma of a genitourinary system organ or structure following a genitourinary system procedure (principal); N50.819 Testicular pain, unspecified | CPT/HCPCS: 99212 ==

== ENCOUNTER 2022-04-30 15:06 | Outpatient (REF) | payer MEDICARE, SELFPAY ==
--- NOTE | ~2022-04-30 | US_ITS ---
EXAMINATION: US SCROTUM CLINICAL INFORMATION: Testicular pain. COMPARISON: 04/20/2022 abdominal ultrasound. TECHNIQUE: A sonogram of the scrotum was performed assessing aguilar-scale appearance and color Doppler flow. Spectral Doppler analysis of the arterial and venous flow were performed in the testes bilaterally. FINDINGS: RIGHT: Right testicle measures 3.8 x 1.8 x 2.9 cm, volume 10.4 mL. A small anechoic cyst measures 0.3 cm. Spectral Doppler analysis of the arterial and venous flow is mildly increased in the right testis. Right epididymal head shows generalized hypoechoic heterogeneity without significant hypervascularity. Trace right hydrocele. Small right varicocele with vessels measuring up to 0.4 cm in maximum width. Mild increased vascularity with Valsalva maneuver. LEFT: Left testicle measures 4.2 x 2.7 x 2.6 cm, volume 15.4 mL. No focal testicular parenchymal lesions are visualized. Spectral Doppler analysis of the arterial and venous flow is normal in the left testis. Left epididymal head shows an anechoic cyst measuring up to 0.8 cm. There is generalized hypoechoic heterogeneity of the head and tail without significant hypervascularity. Moderate to large left hydrocele. US/US scrotum IMPRESSION: 1. Mild asymmetric hypervascularity in the right testis. Mild right arthritis cannot be excluded. 2. Interval increase in left hydrocele now moderate to large in size. 3. Small left varicocele.
== END 2022-04-30 15:07 | disposition home or self-care (01) ==
LOC: HO.US 15:06
PROVIDERS: Visit Provider Nurse Practitioner Family
DX: N50.819 Testicular pain, unspecified (principal)
CPT/HCPCS: 76870

== ENCOUNTER → 2022-05-14 11:21 | Outpatient (BNVA) | payer MEDICARE, SELFPAY | PROVIDERS: Visit Provider Urology | DX: Z13.89 Encounter for screening for other disorder (principal) | CPT/HCPCS: 99212 ==

== ENCOUNTER 2022-06-30 10:23 | Outpatient (REF) | payer MEDICARE, SELFPAY | END 2022-06-30 10:24 | disposition home or self-care (01) | LOC: HO.BBR 10:23 | PROVIDERS: Visit Provider Internal Medicine | DX: Z13.89 Encounter for screening for other disorder (principal) ==

== ENCOUNTER 2022-07-21 12:43 | Outpatient (REF) | payer MEDICARE, SELFPAY ==
[2022-07-21 16:59] LABS: TSH reflex Free T4 6.05 uIU/mL (0.32-4.0)
[2022-07-21 17:34] LABS: Free T4 (Free Thyroxine) 1.05 ng/dL (0.71-1.85)
[2022-07-27 17:24] LABS: Testosterone, Free 82.5 pg/mL (35.0-155.0); Testosterone, Total 519 ng/dL (250-1100)
== END 2022-07-21 12:44 | disposition home or self-care (01) ==
LOC: HO.LAB 12:43
PROVIDERS: Visit Provider Urology
DX: N50.819 Testicular pain, unspecified (principal); R68.82 Decreased libido; N52.9 Male erectile dysfunction, unspecified; Z79.899 Other long term (current) drug therapy
CPT/HCPCS: 36415; 84402; 84403; 84439; 84443; 99212

== ENCOUNTER → 2022-08-12 15:44 | Outpatient (BNVA) | payer MEDICARE, SELFPAY | PROVIDERS: Visit Provider Urology | DX: R68.82 Decreased libido (principal); N52.9 Male erectile dysfunction, unspecified | CPT/HCPCS: Q3014 ==

== ENCOUNTER 2022-09-20 05:53 | Day surgery (SDC) | payer MEDICARE, SELFPAY ==
[2022-09-16 13:34] VITALS: BMI 36.6
--- NOTE | 2022-09-17 10:24 | P.CONAN_ITS ---
Documented by User: Johanny Zafar NP 09/17/22 10:25 HPI - Anesthesia Eval Consult details Narrative: 41yo M for Left Epididymectomy s/p Denervation Testicle 03/2022 with GA-LMA 5 Hemochromatosis with planned Q4 months therapeutic phlebotomies PMFSH Active Problems Active Problems: All Active Problems (Updated 09/16/22 @ 13:25 by Dina Vu RN) Hemochromatosis (Chronic) Spondylosis of lumbosacral spine with radiculopathy (Acute) Facet arthropathy, lumbar (Acute) Erectile dysfunction (Acute) Orchalgia (Acute) Hypothyroid obesity (Acute) Hypothyroid obesity (Acute) Seroma of genitourinary system after genitourinary system procedure (Acute) Low libido (Acute) Past Medical History Medical History Chronic back pain Degenerative disc disease Depression Hemochromatosis HTN (hypertension) Hypothyroid Family History Family History Mother Diabetes Father Liver cancer Bone cancer Liver disease Family history of problems with anesthesia: No Surgical History Surgical History History of back surgery History of surgery History of vasectomy History of Problems with Anesthesia: No Social History Social History (Updated 09/20/22 @ 07:48 by Tiana Hernandez MD) Household Members: Friend(s) Housing: House Are you a primary health care facility administrator to a significant other at home: No Do you presently have visiting nurse or other home services: No Alcohol intake: unknown Patient Tobacco Use Status: Current everyday Tobacco user Tobacco use type: Cigarette Cigarette Packs Per Day: 1 Cigarettes Per Day: 10 Substance Use Type: Marijuana service: No Current occupational status: unemployed Meds Allergies Allergy/AdvReac Type Severity Reaction Status Date / Time adhesive Allergy Intermediate RASH Verified 09/20/22 06:08 bee pollen [BEE STINGS] Allergy Mild Swelling Verified 09/20/22 06:08 gabapentin AdvReac Intermediate Diarrhea Verified 09/20/22 06:08 mushroom AdvReac Intermediate VIOLENTLY Verified 09/20/22 06:08 ILL fish AdvReac Intermediate Diarrhea Uncoded 09/20/22 06:08 wine AdvReac Intermediate Diarrhea Uncoded 09/20/22 06:08 Home Medications Medication Instructions Recorded Confirmed Last Taken Type levothyroxine 25 mcg tablet 1 tab PO DAILY 05/12/20 09/20/22 Unknown History acetaminophen 500 mg tablet 500 mg PO Q6H PRN Pain 08/18/21 09/20/22 Unknown History hydrochlorothiazide 25 mg tablet 25 mg PO DAILY 08/18/21 09/20/22 Unknown History Exam Exam Date and Time: September 17, 2022 1024 Height,Weight and Vital Signs: Height 6 ft Weight 122.47 kg Pertinent Lab Results Pertinent Lab Results: Laboratory Tests 04/26/22 08/02/22 19:31 13:16 WBC 10.1 Hgb 15.6 Hct 46.6 Plt Count 247 Sodium 142 Potassium 3.9 Chloride 106 Carbon Dioxide 26 BUN 10 Creatinine 0.96 Assessment and Plan Final Anesthetic Review Family History of Problems with Anesthesia: No History of Problems with Anesthesia: No Documented by User: Tiana Hernandez MD 09/20/22 07:50 HPI - Anesthesia Eval Consult details Narrative: 41yo M for Left Epididymectomy s/p Denervation Testicle 03/2022 with GA-LMA 5 Hemochromatosis with planned Q4 months therapeutic phlebotomies. Last 05/2022 [facility] Active Problems Active Problems: All Active Problems (Updated 09/20/22 @ 13:25 by Tiana Hernandez MD) Hemochromatosis (Chronic) Spondylosis of lumbosacral spine with radiculopathy (Acute) Facet arthropathy, lumbar (Acute) Erectile dysfunction (Acute) Orchalgia (Acute) Hypothyroid obesity (Acute) Hypothyroid obesity (Acute) Seroma of genitourinary system after genitourinary system procedure (Acute) Low libido (Acute) Denies [facility] Past Medical History Medical History Chronic back pain Degenerative disc disease Depression Hemochromatosis HTN (hypertension) Hypothyroid Family History Family History Mother Diabetes Father Liver cancer Bone cancer Liver disease Surgical History Surgical History History of back surgery History of surgery History of vasectomy Social History Social History (Updated 09/20/22 @ 07:48 by Tiana Hernandez MD) Household Members: Friend(s) Housing: House Are you a primary health care facility administrator to a significant other at home: No Do you presently have visiting nurse or other home services: No Alcohol intake: unknown Patient Tobacco Use Status: Current everyday Tobacco user Tobacco use type: Cigarette Cigarette Packs Per Day: 1 Cigarettes Per Day: 10 Substance Use Type: Marijuana service: No Current occupational status: unemployed Meds Allergies Allergy/AdvReac Type Severity Reaction Status Date / Time adhesive Allergy Intermediate RASH Verified 09/20/22 06:08 bee pollen [BEE STINGS] Allergy Mild Swelling Verified 09/20/22 06:08 gabapentin AdvReac Intermediate Diarrhea Verified 09/20/22 06:08 mushroom AdvReac Intermediate VIOLENTLY Verified 09/20/22 06:08 ILL fish AdvReac Intermediate Diarrhea Uncoded 09/20/22 06:08 wine AdvReac Intermediate Diarrhea Uncoded 09/20/22 06:08 Home Medications Medication Instructions Recorded Confirmed Last Taken Type levothyroxine 25 mcg tablet 1 tab PO DAILY 05/12/20 09/20/22 Unknown History acetaminophen 500 mg tablet 500 mg PO Q6H PRN Pain 08/18/21 09/20/22 Unknown History hydrochlorothiazide 25 mg tablet 25 mg PO DAILY 08/18/21 09/20/22 Unknown History Exam Height,Weight and Vital Signs: Height 6 ft Weight 122.47 kg Vital Signs Temp Pulse Resp BP Pulse Ox O2 Del Method 09/20/22 06:15 97.5 F 84 15 138/78 94 Room Air Airway Mallampati Class: III TM Dist: >3cm Neck ROM: Full Loose/Missing/Broken Teeth: Yes (Many missing. Poor dentition. States none loose but almost all broken) Heart: RRR. Lungs: CTAB. Distant Assessment and Plan Assessment Anesthesia Assessment: Anesthesia Plan Discussed and Chart Reviewed Final Anesthetic Review NPO: Yes ASA Class: III Final Preanesthetic Review: No Changes in Pt Med Stat, Meds/Allgs Chart Reviewed, Consent Obtained/Reviewed and Anes Risks/Benef Reviewed Patient Risk: Intermediate Procedure Risk: Low Assessment/Block/Sedation in SS: Assess/Block/Sedation-SS Anesthetic Plan Anesthetic Plan: GA Disposition: Standard PACU
[2022-09-20 06:08] VITALS: BMI 37.3
[2022-09-20 06:15] VITALS: BP 138/78; PULSE 84; RESP 15; TEMP 36.4; O2SAT 94
[2022-09-20] MEDS: Lactated Ringers 1,000 ML 100 ML IVCONT (06:31)
--- NOTE | 2022-09-20 07:54 | MHC.SHP ---
Pre-Procedural Eval Section A Date of Service: 09/20/22 The patient is an INPATIENT: No Changes since office visit: No Cold of Flu in the past 2 weeks, No New Medical Problems, No Changes in Medication and No Patient answered all questions The History & Physical has been completed within 30 days and I have reviewed it.: Yes Section B Chief Complaint: Testicular pain, unspecified Allergies: Allergies Allergy/AdvReac Type Severity Reaction Status Date / Time adhesive Allergy Intermediate RASH Verified 09/20/22 06:08 bee pollen [BEE STINGS] Allergy Mild Swelling Verified 09/20/22 06:08 gabapentin AdvReac Intermediate Diarrhea Verified 09/20/22 06:08 mushroom AdvReac Intermediate VIOLENTLY Verified 09/20/22 06:08 ILL fish AdvReac Intermediate Diarrhea Uncoded 09/20/22 06:08 wine AdvReac Intermediate Diarrhea Uncoded 09/20/22 06:08 Review of Systems Sugical H&P ROS: Negative: Constitution, Cardiovascular, Respiratory, Neurological, Psychiatric, Hem-Onc, Allergic/Immunologic, Gastrointestinal, Genitourinary, Musculoskeletal, Integumentary, Endocrine and Eyes/Ears/Nose/Throat Exam Surgical H&P Exam: Normal: HEENT, Normal: Heart, Normal: Lungs, Normal: Extremities, Normal: Abdomen, Normal: Skin and Normal: Neurological Plan Diagnosis/Plan: Unchanged (left epididyectomy) I have reviewed the history and physical and performed a pertinent physical examination on my patient. No changes have occurred unless specified. Time Spent With Patient Time: Total time managing care of this patient today ____ minutes.
--- NOTE | 2022-09-20 09:15 | W.PM.OPN ---
Operative Note Operative Note Date of Service: 09/20/22 Narrative: PreOperative Diagnosis: left persistent epididymal pain Post Operative Diagnosis: above Procedure: left epididymectomy Surgeon: Dr Mario Archibald Anesthesia: general Indications for procedure: persistent pain on left testicle particularly on epididymis. Would like to move ahead with left epididymi ectomy. Understands there is a chance this will not resolve the pain. Also is aware the primary risk of the procedure is loss of the left testicle. Procedure: After informed consent was verified the patient was brought to the operating room and placed in a supine position. Anesthesia was administered per protocol. The patient was prepped and draped in a sterile fashion. Safety pause time-out was performed. Antibiotics being given. 3 cm trans scrotal incision on the left scrotum was marked and local anesthetic placed. Using a 15 blade incision was taken down through the skin. Bovie dissection was used to enter the tunica vaginalis. The testicle was delivered from the scrotum. Of note there was fat deposition along the epididymis. This is unusual and may be an inflammatory response. The vas was palpated and the convoluted portion the overlying tissue was divided and the of as isolated with a [place]. It was divided the junction between the convoluted straight portion vas proximally. Dissection then took place following the vas in an antegrade fashion. This was taken down till we reached the approximate beginning of the head of the epididymis. At this point we dissected the tail of the epididymis free from the fat that was surrounding it and divided the overlying tissue. A stay suture was placed through the tail of the epididymis and used to allow is to elevate the epididymal tail. The epididymal tail was then carefully dissected. We switched between the head of the epididymis in the tail of the epididymis is we tried to separate the vas from the surrounding inflamed tissue. At approximately 1/3 distance from the head of the epididymis we encountered small feeding arterial vessel. This was isolated and a 3-0 stop time was placed. The vessel was divided. The vas was freed tile E and handed off the field. The testicle was reexamined and appeared to be normal caliber. Testicle was placed back into the scrotum after any small areas of bleeding and been addressed. The tunica was closed with a running 3-0 Vicryl suture. Skin was closed with interrupted 4-0 chromic sutures. Patient tolerated the procedure well was extubated in operating room transferred in stable condition to recovery area. Pathology: left epididymis Drains: []
[2022-09-20 09:18] VITALS: BP 166/65; PULSE 91; RESP 16; TEMP 36.6; O2SAT 97
[2022-09-20 09:23] VITALS: BP 118/75; PULSE 82; RESP 16; O2SAT 97
[2022-09-20 09:28] VITALS: BP 121/78; PULSE 83; RESP 16; O2SAT 97
[2022-09-20 09:33] VITALS: BP 123/79; PULSE 83; RESP 16; O2SAT 97
[2022-09-20] MEDS: oxyCODONE HCl Immed Release 5 MG TABLET PO (09:40)
[2022-09-20] MEDS: Acetaminophen 325 MG TABLET 975 MG PO (09:40)
[2022-09-20 09:48] VITALS: BP 119/79; PULSE 78; RESP 16; TEMP 36.4; O2SAT 97
== END 2022-09-20 10:34 | disposition home or self-care (01) ==
PROVIDERS: Visit Provider Urology
PROC: (CPT 54860; principal; 2022-09-20 07:30)
DX: N50.812 Left testicular pain (principal); I10 Essential (primary) hypertension; F17.210 Nicotine dependence, cigarettes, uncomplicated
CPT/HCPCS: 54860; 88304; J0690; J1100; J1885; J2370; J2405; J2795; J3010

== ENCOUNTER → 2022-09-27 15:02 | Outpatient (BNVA) | payer MEDICARE, SELFPAY | PROVIDERS: PCP Nurse Practitioner Family; Visit Provider Urology | DX: S30.22XA Contusion of scrotum and testes, initial encounter (principal) | CPT/HCPCS: 99212 ==

== ENCOUNTER → 2022-10-05 09:35 | Outpatient (BNVA) | payer MEDICARE, SELFPAY | PROVIDERS: PCP Nurse Practitioner Family; Visit Provider Urology | DX: C61 Malignant neoplasm of prostate (principal) | CPT/HCPCS: 99212 ==

== ENCOUNTER 2022-10-11 13:28 | Outpatient (REF) | payer MEDICARE, SELFPAY ==
--- NOTE | ~2022-10-11 | US_ITS ---
EXAMINATION: US SCROTUM CLINICAL INFORMATION: Contusion of scrotum and testis. Post left epididymal resection. Scrotal swelling.. COMPARISON: None available. TECHNIQUE: A sonogram of the scrotum was performed assessing aguilar-scale appearance and color Doppler flow. Spectral Doppler analysis of the arterial and venous flow were performed in the testes bilaterally. FINDINGS: RIGHT: Right testicle measures 3.9 x 1.8 x 2.6 cm, volume 9 mL. No focal testicular parenchymal lesions are visualized. Spectral Doppler analysis of the arterial and venous flow is normal in the right testis. Right epididymal head is normal in size. The tail of the right epididymis appears prominent but similar to previous exam. Small right hydrocele. No right varicocele is seen. Right epididymal Doppler flow is normal. LEFT: Left testicle measures 4.1 x 2.7 x 3.1 cm, volume 18 mL. Small testicular cyst measuring 4 x 4 x 3 mm. This is similar to previous exam. No other focal testicular parenchymal lesions are visualized. Spectral Doppler analysis of the arterial and venous flow is seen in the left testis however color and Doppler signal is slightly decreased on the left compared to the right. This is probably due to the large hematoma. Heterogeneous collection around the left testicle suggestive of a large hematocele and scrotal hematoma US/US scrotum IMPRESSION: Large left hematocele and scrotal hematoma. Small stable 3 x 4 mm left testicular cyst. Findings will be communicated by the [place] work flow cloth mercerizer operator.
== END 2022-10-11 13:29 | disposition home or self-care (01) ==
LOC: HO.US 13:28
PROVIDERS: PCP Nurse Practitioner Family; Visit Provider Urology
DX: S30.22XA Contusion of scrotum and testes, initial encounter (principal)
CPT/HCPCS: 76870

== ENCOUNTER → 2022-10-12 09:40 | Outpatient (BNVA) | payer MEDICARE, SELFPAY | PROVIDERS: PCP Nurse Practitioner Family; Visit Provider Urology ==

== ENCOUNTER 2022-10-21 15:27 | Outpatient (REF) | payer OTHER, SELFPAY ==
--- NOTE | ~2022-10-21 | US_ITS ---
EXAMINATION: US SCROTUM CLINICAL INFORMATION: Contusion of the scrotum and testes.. COMPARISON: 10/11/2022 TECHNIQUE: A sonogram of the scrotum was performed assessing aguilar-scale appearance and color Doppler flow. Spectral Doppler analysis of the arterial and venous flow were performed in the testes bilaterally. FINDINGS: RIGHT: Right testicle measures 3.6 x 1.9 x 2.7 cm, volume 9.7 mL. No focal testicular parenchymal lesions are visualized. Spectral Doppler analysis of the arterial and venous flow is normal in the right testis. Right epididymal head is normal in size. No right hydrocele or varicocele is seen. Right epididymal Doppler flow is normal. LEFT: Left testicle measures 3 x 2.2 x 2.8 cm, volume 9.7 mL. 0.3 cm cyst in the peripheral parenchyma. No additional testicular parenchymal lesions are visualized. Spectral Doppler analysis of the arterial and venous flow is normal in the left testis. Left epididymis has been removed. No left hydrocele. Small varicocele. Significant improvement of the prior hematoma. US/US scrotum IMPRESSION: Small left varicocele. Tiny cyst in the left testicle. Improvement of the hematoma.
== END 2022-10-21 15:28 | disposition home or self-care (01) ==
LOC: HO.US 15:27
PROVIDERS: PCP Nurse Practitioner Family; Visit Provider Urology
DX: S30.22XA Contusion of scrotum and testes, initial encounter (principal)
CPT/HCPCS: 76870

== ENCOUNTER → 2022-11-16 10:19 | Outpatient (BNVA) | payer OTHER, SELFPAY | PROVIDERS: Visit Provider Urology | DX: N50.812 Left testicular pain (principal); N52.9 Male erectile dysfunction, unspecified | CPT/HCPCS: 99212 ==

== ENCOUNTER 2023-01-11 14:40 | Outpatient (REF) | payer OTHER, SELFPAY | END 2023-01-11 14:41 | disposition home or self-care (01) | LOC: HO.BBR 14:40 | PROVIDERS: PCP Nurse Practitioner Family; Visit Provider Internal Medicine | DX: Z13.89 Encounter for screening for other disorder (principal) ==

== ENCOUNTER 2023-02-09 10:20 | Outpatient (AMB) | payer OTHER, SELFPAY ==
[2023-02-09 10:32] VITALS: BP 128/86; PULSE 107; RESP 12; TEMP 36.5; O2SAT 98; BMI 36.8
--- NOTE | 2023-02-09 10:32 | MHC.PC.OV ---
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 Patient states that he would like to see someone and get a referral for his hearing due to being told at last physical that he should see someone. Patient states that he is being seeing by Oncology at [facility] [place] and was told he would need a colonoscopy done and would like a referral to Gastro as well. Senior Network Administrator Required: No Accompanied by: Self / Same As Patient Allergies adhesive Allergy (Intermediate, Verified 02/09/23 11:13) RASH bee pollen [BEE STINGS] Allergy (Mild, Verified 02/09/23 11:13) Swelling gabapentin Adverse Reaction (Intermediate, Verified 02/09/23 11:13) Diarrhea mushroom Adverse Reaction (Intermediate, Verified 02/09/23 11:13) VIOLENTLY ILL fish Adverse Reaction (Intermediate, Uncoded 02/09/23 11:13) Diarrhea wine Adverse Reaction (Intermediate, Uncoded 02/09/23 11:13) Diarrhea Tobacco use date assessed: 02/09/23 Dental Screening Dental Screen Date: 02/09/23 Did you have a dental visit in the last 12 months?: No Did you have a dental problem in the last 6 months where you did not have access to dental care?: No Was dental information given to patient?: Yes HPI HPI Comments History of Present Illness Details 42-year-old male presents to establish care. He notes he was last evaluated by his former PCP in 2016. He has been utilizing urgent care. He notes he is not on prescription medications. He states he took psychotropic medications between 2018 and 2019. He states was was also on HCTZ and levothyroxine until 05/2022. He stopped taking the medications because he could not afford healthcare cost. He states he still cannot afford healthcare or copays for his prescription. He notes he came to establish care because his health plan, [employer], requested that he needs an annual physical exam to be eligible for coverage. He has past medical history significant for hypertension, hypothyroidism, anxiety, depression, hereditary hemochromatosis, testicular pain, and COPD. He has h/o SI and ECT treatments. He is followed by Dr. Richardson, Hematology/Oncology. He had CBC and iron profile blood work done last month. He is also followed by urology. He had a positive response to the PHQ-9 question regarding Thoughts that you would be better off or of hurting yourself in some way. He notes that he is an inbreed and therefore he believes he was never meant to be alive. He states that no one likes me, no one wants to do anything with me. No one likes the way i think. He states he lost his marriage and children because of the way i think. He denies SI/HI at this time, denies any plans of committing suicide, and does not contracts for safety. He states his last SI was a week ago. ? [facility] Medical History (Updated 02/09/23 @ 11:50 by Lauren Marcial CNP) History of substance abuse Anxiety Alcoholism Arthritis Thyroid disease COPD (chronic obstructive pulmonary disease) Irritable bowel syndrome Hypothyroid Depression Degenerative disc disease HTN (hypertension) Chronic back pain Hemochromatosis Surgical History History of epididymectomy History of back surgery History of surgery History of vasectomy Family History Mother Diabetes Father Liver cancer Bone cancer Liver disease Social History Household Members: Friend(s) Housing: House Are you a primary physician assistant primary care to a significant other at home: No Do you presently have visiting nurse or other home services: No Alcohol intake: unknown Patient Tobacco Use Status: Current everyday Tobacco user Tobacco use type: Cigarette Cigarette Packs Per Day: 1 Cigarettes Per Day: 10 e-Cigarette/Vaping Use: Never Used Substance Use Type: Marijuana service: No Current occupational status: disabled Cognitive needs: No Hearing needs: Yes Vision needs: Yes Questionnaire PHQ-9 Over the last 2 weeks, how often have you been bothered by any of the following problems? 1. Little interest or pleasure in doing things: nearly every day 2. Feeling down, depressed, or hopeless: more than half the days 3. Trouble falling or staying asleep, or sleeping too much: more than half the days 4. Feeling tired or having little energy: more than half the days 5. Poor appetite or overeating: more than half the days 6. Feeling bad about yourself - or that you are a failure or have let yourself or your family down: more than half the days 7. Trouble concentrating on things, such as reading the newspaper or watching television: more than half the days 8. Moving or speaking so slowly that other people could have noticed. Or the opposite - being so fidgety or restless that you have been moving around a lot more than usual: more than half the days 9. Thoughts that you would be better off or of hurting yourself in some way: more than half the days Total score: 19 Source: Developed by Drs. Jasper Islas, Laila Camilo, Kaveh Bonilla and colleagues, with an educational lauryn from [employer]. Thrive Questionnaire Date Thrive assessed: 02/09/23 I am a: Patient What is your living situation today?: I have a place to live, but I am worried about losing it in the future Within the past 12 months, did the food you bought not last and you didn't have the money to get more?: Often true Within the past 12 months, did you worry whether your food would run out before you got money to buy more?: Often true Do you have trouble paying for medicines?: Yes Do you have trouble getting transportation to medical appointments?: Yes Do you have trouble paying your heating and electricity bill?: No Do you have trouble taking care of your child, family member or friend?: No Do you have trouble with day-to-day activities such as bathing, preparing meals, shopping, managing finances, etc.?: Yes Are you currently unemployed and looking for a job?: No Are you interested in more education?: No Please select the resources that you would like help with: Paying for medicine, Transportation and Daily support Currently or been in a relationship where the following occur: no concerns reported AUDIT C Alcohol Use Questionnaire (AUDIT-C) 1. How often do you have a drink containing alcohol?: Monthly or less 2. How many drinks containing alcohol do you have on a typical day when you are drinking?: 1 or 2 3. How often do you have six or more drinks on one occasion?: Never Total Score: 1 JOZEF-7 AMB Questionnaire JOZEF-7 Date JOZEF - 7 assessed: 02/09/23 Feeling nervous, anxious, or on edge: 2 = More than half the days Not being able to stop or control worryin = More than half the days Worrying too much about different things: 2 = More than half the days Trouble relaxin = More than half the days Being so restless that it is hard to sit still: 1 = Several days Becoming easily annoyed or irritable: 1 = Several days Feeling afraid as if something awful might happen: 2 = More than half the days Total JOZEF-7 score (0-4 normal; 5-9 mild; 10-14 moderate; 15-21 severe): 12 Source: Developed by Drs. Jasper Islas, Laila Camilo, Kaveh Bonilla and colleagues, with an educational lauryn from [employer]. Review of Systems Const Details: Const Denies chills, Denies fatigue, Denies fever(s), Denies headache(s) and Denies weakness ENT Denies dizziness and Denies headache(s) Card Denies chest pain, Denies lightheadedness, Denies dyspnea and Denies other (Palpitations) Resp Denies cough, Denies dyspnea, Denies wheezing and Denies other ( shortness of breath) GI Denies abdominal pain, Denies melena, Denies hematochezia, Denies change in bowel habits, Denies dyspepsia and Denies nausea Denies hematuria and Denies dysuria Musc Denies abnormal gait, Denies myalgias, Denies arthralgias, Denies numbness and Denies tingling Skin/Breast Denies rash, Denies unusual bruising and Denies wounds Neuro Denies abnormal gait, Denies dizziness, Denies headache(s), Denies memory loss, Denies numbness, Denies Sensory deficit (Neuro), Denies tingling and Denies weakness Psych Reports anxiety, Reports depression, Denies memory loss Endo Denies cold intolerance, Denies fatigue, Denies heat intolerance, Denies polydipsia and Denies polyuria Aller/Immun Denies wheezing Physical exam (Primary Care) Vital Signs: Last Vital Signs Temp 97.7 F 02/09/23 10:32 Pulse 107 H 02/09/23 10:32 Resp 12 02/09/23 10:32 BP 128/86 02/09/23 10:32 Pulse Ox 98 02/09/23 10:32 BMI result Body Mass Index 36.8 Tobacco/Smoking Status: Tobacco use Status Tobacco use date assessed 02/09/23 02/09/23 10:50 Patient Tobacco Use Status Current everyday Tobacco 02/09/23 10:32 Tobacco use type Cigarette 02/09/23 10:32 e-Cigarette/Vaping Use Never Used 02/09/23 10:50 PHQ-9: PHQ-9 Score PHQ-9: Total score 02/09/23 14:41 Thrive Assessment: Date of Thrive Assessment Date Thrive assessed 02/09/23 02/09/23 10:50 Currently or been in a relationship where the following occur: no concerns reported Const Other: General: no acute distress and well developed Nutritional Appearance: well nourished Orientation/consciousness: patient oriented x3 HENMT Head: Yes normocephalic and Yes atraumatic Eyes General: appearance normal, both eyes and all related structures Pupils: Equal, round and reactive pupils present EOM: EOMs intact bilaterally Resp Effort & Inspection: normal respiratory effort Auscultation: clear to auscultation bilaterally Cardio Rate: regular rate Rhythm: regular rhythm Heart sounds: S1 normal heart sound present, S2 normal heart sound present, no gallops, no murmurs and no rubs GI Palpation (GI): No Abdominal aortic bruit present, Soft to palpation, nontender, No hepatosplenomegaly present and No Rebound tenderness present Auscultation: normal bowel sounds General: Yes no CVA tenderness Back/Spine/Pelvis Back: no CVA tenderness Cervical Spine: cervical ROM normal and No Cervical spine tenderness Thoracic/Lumbar Spine: thoraco-lumbar ROM normal, No pain with thoraco-lumbar ROM, No thoracic spinal tenderness and No lumbar spinal tenderness Extrem General: Yes normal to inspection, No edema and No calf tenderness Skin General: warm and dry. Normal skin color. Normal skin turgor Lesions: no lesions Rashes: no rashes Trauma: no lacerations or abrasions Wounds: no wounds Nails: normal Neuro General: patient oriented x3, gait normal and no focal neuro deficit Cranial nerves: Yes Equal, round and reactive pupils present Cognition (Neuro): normal cognition Gait exam (Neuro): Normal gait present Sensory Exam: No Sensory deficit (Neuro) Psych Appearance: grossly normal Affect: normal affect Attitude: cooperative Thought process: Normal thought process present Assessment and Plan Assessment & Plan (1) HTN (hypertension): Code(s): I10 - Essential (primary) hypertension Qualifiers: Hypertension type: primary hypertension Qualified Code(s): I10 - Essential (primary) hypertension Plan: Reports history of hypertension and notes he was on HCTZ until earlier this year Blood pressure is controlled, 128/86 Low-sodium diet and routine exercise encouraged Will continue to monitor (2) Anxiety: Code(s): F41.9 - Anxiety disorder, unspecified Plan: JOZEF-7 in PHQ-9 scores revealed moderate anxiety and severe depression respectively. He declined therapy, residential programs, or inpatient psychiatric services. He notes he has been admitted for inpatient psychiatric services multiple times without improvement; his last admission was at [facility] [place] [facility] [place]. Fluoxetine ordered. Advised to take as prescribed Routine exercise encouraged. The patient's case was discussed with Anna, social work, who states she will call and have the patient follow-up with her soon to explore other options. Anna was informed that the patient states he does not have money to cover co-pay for his prescriptions. Anna was as to explore resources that may cover co-pay for the patient. He notes that he has to leave the office no later than 13:00 today to return his friend's car. Advised to follow-up in 1 week or return sooner with worsening or new symptoms Verbalized understanding and agreed with treatment plan. (3) Depression: Comment: history of suicidal ideation/has had ECT treatments Code(s): F32.9 - Major depressive disorder, single episode, unspecified Plan: As above (4) Hypothyroid: Code(s): E03.9 - Hypothyroidism, unspecified Plan: He notes he was on levothyroxine until earlier this year Will check TSH/T4 levels and make changes to his care plan if warranted Verbalized understanding and agreed with treatment plan. (5) Orchalgia: Code(s): N50.819 - Testicular pain, unspecified Plan: Reports intermittent testicular pain. No acute symptoms at this time Continue follow-up with urology as planned Verbalized understanding and agreed with the plan. (6) Hemochromatosis: Comment: phlebotomy [id number] Code(s): E83.119 - Hemochromatosis, unspecified Plan: He receives phlebotomy every 6 months Continue follow-up with Hematology/Oncology as planned Verbalized understanding and agreed with treatment plan. Orders: Orders Comprehensive [place]. Panel Fast 02/10/23 Z00.00 - Encounter for general adult medical examination without abnormal findings Complete Blood Count Auto Diff 02/10/23 Z00.00 - Encounter for general adult medical examination without abnormal findings Lipid Panel 02/10/23 Z00.00 - Encounter for general adult medical examination without abnormal findings TSH reflex Free T4 02/10/23 Z00.00 - Encounter for general adult medical examination without abnormal findings UA CC w/rflx Micro + Cult 02/10/23 Z00.00 - Encounter for general adult medical examination without abnormal findings Medications: New fluoxetine 20 mg PO DAILY 30 days 30 caps 3RF Coding Level of Care Code New Pt Level 3 (85760) Diagnoses Primary hypertension I10 Hypertension type: primary hypertension Anxiety F41.9 Depression F32.9 Hypothyroid E03.9 Orchalgia N50.819 Hemochromatosis E83.119
== END 2023-02-09 12:39 | disposition home or self-care (01) ==
PROVIDERS: PCP Nurse Practitioner Family; Visit Provider Nurse Practitioner Family
DX: I10 Essential (primary) hypertension (principal); F41.9 Anxiety disorder, unspecified; F33.9 Major depressive disorder, recurrent, unspecified; E03.9 Hypothyroidism, unspecified; N50.819 Testicular pain, unspecified; E83.119 Hemochromatosis, unspecified
CPT/HCPCS: 99203

== ENCOUNTER 2023-02-10 10:52 | Outpatient (REF) | payer OTHER, SELFPAY ==
[2023-02-10 11:40] LABS: MANUAL DIFF FLAG NO
[2023-02-10 12:03] LABS: Basophils Absolute Auto 0.1 X10*3/uL (0.0-0.2); Basophils Percent Auto 1.1 % (0-2); Eosinophils Absolute Auto 0.3 X10*3/uL (0.0-0.4); Eosinophils Percent Auto 2.2 % (0-4); Hematocrit 49.6 % (42.0-52.0); Hemoglobin 17.1 g/dl (14.0-18.0); Imm Gran Abs Auto 0.06 X10*3/uL (0.00-0.03); Imm Gran Pct Auto 0.5 % (0.0-0.4); Lymphocytes Absolute Auto 3.5 X10*3/uL (1.2-4.9); Lymphocytes Percent Auto 28.6 % (20-40); Mean Corpuscular HGB Conc 34.5 g/dl (31.0-36.0); Mean Corpuscular Hemoglobin 32.7 pg (27.0-33.0); Mean Corpuscular Volume 94.8 fL (80.0-98.0); Mean Platelet Volume 11.3 fL (9.4-12.4); Monocytes Absolute Auto 0.5 X10*3/uL (0.1-1.2); Monocytes Percent Auto 3.9 % (2-11); Neutrophils Absolute Auto 7.8 x10*3/uL (2.0-8.3); Neutrophils Percent Auto 63.7 % (45-73); Platelet Count 213 X10*3/uL (160-400); Red Blood Count 5.23 X10*6/uL (4.60-5.80); Red Cell Distribution Width 14.1 % (11.0-16.0); White Blood Count 12.2 X10*3/uL (4.8-10.8)
[2023-02-10 12:39] LABS: Appearance Urine Clear; Color Urine Yellow; Glucose Urine UA Negative (Negative); Leukocyte Esterase Urine Negative (Negative); Nitrite Urine Negative (Negative); PH 7.5 (5.0-9.0); UMIC TRIGGER UACC YES; Urine Blood Trace (Negative); Urine Ketones Negative (Negative); Urine Protein Negative (Neg-Trace)
[2023-02-10 12:43] LABS: Alanine Aminotransferase 15 U/L (0-40); Albumin Level 4.3 g/dL (3.5-5.0); Alkaline Phosphatase 94 U/L (39-117); Anion Gap 13 (12-20); Aspartate Amino Transferase 13 U/L (5-37); Bacteria Urine None Seen (None Seen); Bilirubin Total 0.5 mg/dL (0.0-1.0); Blood Urea Nitrogen 16 mg/dL (9-16); Calcium 9.7 mg/dL (8.4-10.2); Carbon Dioxide 27 mmol/L (22-29); Chloride 109 mmol/L (96-108); Cholesterol 135 mg/dL (<200); Estimated Glomerular Filt Rate > 60; Glucose Fasting 92 mg/dL (60-99); HDL Cholesterol 33 mg/dL (>40); Hyaline Casts Urine 0-2 /LPF (0-2); LDL Cholesterol Calculated 80 mg/dL (<100); Potassium 4.5 mmol/L (3.3-5.1); Sodium 144 mmol/L (135-145); Squamous Epithelial Cell Urine 0-2 /HPF (0-2); Total Protein 7.1 g/dL (6.5-8.0); Triglycerides 112 mg/dL (<150); WBC Urine 0-5 /HPF (0-5)
[2023-02-10 13:01] LABS: TSH reflex Free T4 7.96 uIU/mL (0.32-4.0)
[2023-02-10 14:43] LABS: Free T4 (Free Thyroxine) 0.83 ng/dL (0.71-1.85)
== END 2023-02-10 10:53 | disposition home or self-care (01) ==
LOC: HO.BBR 10:52
PROVIDERS: PCP Nurse Practitioner Family; Referring Provider Nurse Practitioner Family; Visit Provider Internal Medicine
DX: Z00.00 Encounter for general adult medical examination without abnormal findings (principal); E83.110 Hereditary hemochromatosis
CPT/HCPCS: 36415; 80053; 80061; 81001; 84439; 84443; 85025

== ENCOUNTER 2023-02-16 14:54 | Outpatient (AMB) | payer OTHER, SELFPAY ==
--- NOTE | 2023-02-16 14:56 | MHC.PC.OV ---
Vital Signs 02/16/23 14:58 Height 6 ft Weight 271 lb 4 oz BMI 36.8 BP 132/74 Blood Pressure Location Rt brachial Position Sitting Respiration 12 Pulse 94 Pulse Source Pulse Oximeter Temp 97.1 F Temp Source Temporal Artery Scan Pulse Oximetry (%) 98 Intake Visit Reasons: 1 wk anxiety, depression Geometry Tutor Required: No Accompanied by: Self / Same As Patient Allergies adhesive Allergy (Intermediate, Verified 02/16/23 15:03) RASH bee pollen [BEE STINGS] Allergy (Mild, Verified 02/16/23 15:03) Swelling gabapentin Adverse Reaction (Intermediate, Verified 02/16/23 15:03) Diarrhea mushroom Adverse Reaction (Intermediate, Verified 02/16/23 15:03) VIOLENTLY ILL fish Adverse Reaction (Intermediate, Uncoded 02/09/23 11:13) Diarrhea wine Adverse Reaction (Intermediate, Uncoded 02/09/23 11:13) Diarrhea Tobacco use date assessed: 02/09/23 Dental Screening Dental Screen Date: 02/16/23 Did you have a dental visit in the last 12 months?: No Did you have a dental problem in the last 6 months where you did not have access to dental care?: No Was dental information given to patient?: Yes HPI HPI Comments History of Present Illness Details 42-year-old male presents for anxiety and depression follow-up. He established care a week ago. He present with complaints of anxiety and depression and noted he has not taking psychotropic medication for the past 3-4 years because he could not afford medical care. His PHQ-9 and JOZEF-7 scores were severe depression and moderate anxiety respectively. He had a positive response to the PHQ-9 question regarding Thoughts that you would be better off or of hurting yourself in some way He denied SI/HI, plan of committing suicide, but did not contract for safety. He was prescribed fluoxetine for anxiety and depression and was referred to our social welfare clerk, Anna. He notes that he received fluoxetine and levothyroxine that were prescribed for him at this last visit without copay. He states he as been taking the medications as prescribed. He reports minimal mood improvement, so far, with fluoxetine. He has a positive response today to the PHQ-9 question regarding Thoughts that you would be better off or of hurting yourself in some way. He notes that one moment he is happy and the next moment he will start thinking about his problems, including his children and ex- whom he no longer has relationship with. He denies SI/HI ideation, denies plans of committing suicide, and refused to contracts for safety. He notes I've been doing it on my own my whole life. I don't need to talk to anybody. [facility] Medical History History of substance abuse Anxiety Alcoholism Arthritis Thyroid disease COPD (chronic obstructive pulmonary disease) Irritable bowel syndrome Hypothyroid Depression Degenerative disc disease HTN (hypertension) Chronic back pain Hemochromatosis Surgical History History of epididymectomy History of back surgery History of surgery History of vasectomy Family History Mother Diabetes Father Liver cancer Bone cancer Liver disease Social History Household Members: Friend(s) Housing: House Are you a primary career placement services counselor to a significant other at home: No Do you presently have visiting nurse or other home services: No Alcohol intake: unknown Patient Tobacco Use Status: Current everyday Tobacco user Tobacco use type: Cigarette Cigarette Packs Per Day: 1 Cigarettes Per Day: 10 e-Cigarette/Vaping Use: Never Used Substance Use Type: Marijuana service: No Current occupational status: disabled Cognitive needs: No Hearing needs: Yes Vision needs: Yes Questionnaire PHQ-9 Over the last 2 weeks, how often have you been bothered by any of the following problems? 1. Little interest or pleasure in doing things: nearly every day 2. Feeling down, depressed, or hopeless: more than half the days 3. Trouble falling or staying asleep, or sleeping too much: nearly every day 4. Feeling tired or having little energy: nearly every day 5. Poor appetite or overeating: more than half the days 6. Feeling bad about yourself - or that you are a failure or have let yourself or your family down: more than half the days 7. Trouble concentrating on things, such as reading the newspaper or watching television: more than half the days 8. Moving or speaking so slowly that other people could have noticed. Or the opposite - being so fidgety or restless that you have been moving around a lot more than usual: several days 9. Thoughts that you would be better off or of hurting yourself in some way: several days Total score: 19 Depression Screening Interpretation: Positive Depression Screening Follow-up: Existing condition Source: Developed by Drs. Jasper Islas, Laila Camilo, Kaveh Bonilla and colleagues, with an educational lauryn from [employer]. Thrive Questionnaire Date Thrive assessed: 02/09/23 JOZEF-7 AMB Questionnaire JOZEF-7 Date JOZEF - 7 assessed: 02/09/23 Feeling nervous, anxious, or on edge: 2 = More than half the days Not being able to stop or control worryin = More than half the days Worrying too much about different things: 2 = More than half the days Trouble relaxin = More than half the days Being so restless that it is hard to sit still: 1 = Several days Becoming easily annoyed or irritable: 1 = Several days Feeling afraid as if something awful might happen: 1 = Several days Total JOZEF-7 score (0-4 normal; 5-9 mild; 10-14 moderate; 15-21 severe): 11 Source: Developed by Drs. Jasper Islas, Laila Camilo, Kaveh Bonilla and colleagues, with an educational lauryn from [employer]. Review of Systems Const Details: Const Denies chills, Denies fatigue, Denies fever(s), Denies headache(s) and Denies weakness ENT Denies dizziness and Denies headache(s) Card Denies chest pain, Denies lightheadedness, Denies dyspnea and Denies other (Palpitations) Resp Denies cough, Denies dyspnea, Denies wheezing and Denies other ( shortness of breath) GI Denies abdominal pain, Denies melena, Denies hematochezia, Denies change in bowel habits, Denies dyspepsia and Denies nausea Denies hematuria and Denies dysuria Musc Denies abnormal gait, Denies myalgias, Denies arthralgias, Denies numbness and Denies tingling Skin/Breast Denies rash, Denies unusual bruising and Denies wounds Neuro Denies abnormal gait, Denies dizziness, Denies headache(s), Denies memory loss, Denies numbness, Denies Sensory deficit (Neuro), Denies tingling and Denies weakness Psych Denies anxiety, Denies depression, Denies memory loss Endo Denies cold intolerance, Denies fatigue, Denies heat intolerance, Denies polydipsia and Denies polyuria Aller/Immun Denies wheezing Physical exam (Primary Care) Vital Signs: Last Vital Signs Temp 97.1 F 02/16/23 14:58 Pulse 94 02/16/23 14:58 Resp 12 02/16/23 14:58 BP 132/74 02/16/23 14:58 Pulse Ox 98 02/16/23 14:58 BMI result Body Mass Index 36.8 Tobacco/Smoking Status: Tobacco use Status Tobacco use date assessed 02/09/23 02/16/23 15:07 Patient Tobacco Use Status Current everyday Tobacco 02/16/23 15:07 Tobacco use type Cigarette 02/16/23 15:07 e-Cigarette/Vaping Use Never Used 02/16/23 15:07 PHQ-9: PHQ-9 Score PHQ-9: Total score 19 02/16/23 15:07 Depression Screening Interpretation: Positive Depression Screening Follow-up: Existing condition Thrive Assessment: Date of Thrive Assessment Date Thrive assessed 02/09/23 02/16/23 15:07 Const Other: General: no acute distress and well developed Nutritional Appearance: well nourished Orientation/consciousness: patient oriented x3 HENMT Head: Yes normocephalic and Yes atraumatic Eyes General: appearance normal, both eyes and all related structures Pupils: Equal, round and reactive pupils present EOM: EOMs intact bilaterally Resp Effort & Inspection: normal respiratory effort Auscultation: clear to auscultation bilaterally Cardio Rate: regular rate Rhythm: regular rhythm Heart sounds: S1 normal heart sound present, S2 normal heart sound present, no gallops, no murmurs and no rubs GI Palpation (GI): No Abdominal aortic bruit present, Soft to palpation, nontender, No hepatosplenomegaly present and No Rebound tenderness present Auscultation: normal bowel sounds General: Yes no CVA tenderness Back/Spine/Pelvis Back: no CVA tenderness Cervical Spine: cervical ROM normal and No Cervical spine tenderness Thoracic/Lumbar Spine: thoraco-lumbar ROM normal, No pain with thoraco-lumbar ROM, No thoracic spinal tenderness and No lumbar spinal tenderness Extrem General: Yes normal to inspection, No edema and No calf tenderness Skin General: warm and dry. Normal skin color. Normal skin turgor Lesions: no lesions Rashes: no rashes Trauma: no lacerations or abrasions Wounds: no wounds Nails: normal Neuro General: patient oriented x3, gait normal and no focal neuro deficit Cranial nerves: Yes Equal, round and reactive pupils present Cognition (Neuro): normal cognition Gait exam (Neuro): Normal gait present Sensory Exam: No Sensory deficit (Neuro) Psych Appearance: grossly normal Affect: normal affect Attitude: cooperative Thought process: Normal thought process present Assessment and Plan Assessment & Plan (1) Depression: Comment: history of suicidal ideation/has had ECT treatments Code(s): F32.9 - Major depressive disorder, single episode, unspecified Plan: His PHQ-9 and JOZEF-7 scores revealed moderately severe depression and moderate anxiety respectively Encouraged to continue to take fluoxetine as prescribed. Informed that usually takes at least 4 weeks for psychotropic medication to be fully effective Routine exercise encouraged She met with our social welfare clerk, Anna who will help him [place] and refer him to a psychiatrist and [facility] [place] Advised to follow-up in 3 weeks or return sooner with worsening or new symptoms Verbalized understanding and agreed with treatment plan. (2) Anxiety: Code(s): F41.9 - Anxiety disorder, unspecified Plan: As above Coding Level of Care Code Est Pt Level 3 (85496) Diagnoses Depression F32.9 Anxiety F41.9
[2023-02-16 14:58] VITALS: BP 132/74; PULSE 94; RESP 12; TEMP 36.2; O2SAT 98; BMI 36.8
== END 2023-02-16 16:03 | disposition home or self-care (01) ==
PROVIDERS: PCP Nurse Practitioner Family; Visit Provider Nurse Practitioner Family
DX: F33.9 Major depressive disorder, recurrent, unspecified (principal); F41.9 Anxiety disorder, unspecified
CPT/HCPCS: 99213

== ENCOUNTER 2023-02-22 14:55 | Outpatient (AMB) | payer OTHER, SELFPAY ==
--- NOTE | 2023-02-22 15:11 | A.OFFVIS_ITS ---
Intake Intake Visit Reasons: 3M Follow Up (Testicle Pain) Intake Note: Patient is Present for Follow Up Urology Medication: None Antibiotic Allergies: None Blood Thinners: None Pharmacy: [facility] Allergies adhesive Allergy (Intermediate, Verified 02/16/23 15:03) RASH bee pollen [BEE STINGS] Allergy (Mild, Verified 02/16/23 15:03) Swelling gabapentin Adverse Reaction (Intermediate, Verified 02/16/23 15:03) Diarrhea mushroom Adverse Reaction (Intermediate, Verified 02/16/23 15:03) VIOLENTLY ILL fish Adverse Reaction (Intermediate, Uncoded 02/09/23 11:13) Diarrhea wine Adverse Reaction (Intermediate, Uncoded 02/09/23 11:13) Diarrhea HPI HPI Comments History of Present Illness Details Yonis is a pleasant male. He is a patient of . He is seen for the following urologic conditions - left testicular orchalgia - erectile dysfunction Fully healed left testicle Minimal pain Significant improvement Now has difficulty with urination Trial Flomax for 4 weeks Six month follow-up Left testicular orchalgia Longstanding Prior procedure is child after trauma and he feels scarring from testicle to skin On examination has area of testicular scarring Has increased pain and insertion for rectus abdominus Did notice temporary relief from cord block previously performed for 2-3 days 04/13 testicular denervation left side 10/12 testicular epididymectomy - persist ent non resolving hematoma, drained in office Erectile dysfunction Progressive Reduced morning erections Increased weight Recommend trial of PD medications - failed 100 mg Viagra Hemachromatosis - 08/12 T 520 PFSH Medical History History of substance abuse Anxiety Alcoholism Arthritis Thyroid disease COPD (chronic obstructive pulmonary disease) Irritable bowel syndrome Hypothyroid Depression Degenerative disc disease HTN (hypertension) Chronic back pain Hemochromatosis Surgical History History of epididymectomy History of back surgery History of surgery History of vasectomy Family History Mother Diabetes Father Liver cancer Bone cancer Liver disease Social History Household Members: Friend(s) Housing: House Are you a primary care professional to a significant other at home: No Do you presently have visiting nurse or other home services: No Alcohol intake: unknown Patient Tobacco Use Status: Current everyday Tobacco user Tobacco use type: Cigarette Cigarette Packs Per Day: 1 Cigarettes Per Day: 10 e-Cigarette/Vaping Use: Never Used Substance Use Type: Marijuana service: No Current occupational status: disabled Cognitive needs: No Hearing needs: Yes Vision needs: Yes Review of Systems Const Denies chills and Denies fever(s) Card Reports no additional complaints and Denies syncope Resp Denies cough GI Denies abdominal pain and Denies heartburn Reports as per HPI and Denies change in libido Neuro Denies syncope Psych Denies change in libido Endo Denies change in libido Physical Exam Const General: cooperative, healthy appearing, comfortable and no acute distress Orientation/consciousness: patient oriented x3 HEENT Face and sinus: Yes normal facial exam Mouth: moist mucous membranes Neck Neck: Yes normal visual inspection, Yes full ROM and Yes trachea midline Chest Chest palpation & inspection: normal inspection of the chest Resp Effort & Inspection: normal respiratory effort, able to speak in complete sentences and no respiratory distress GI Inspection: Yes normal to inspection Back/Spine/Pelvis Cervical Spine: normal cervical lordosis Thoracic/Lumbar Spine: thoracic and lumbar spine normal to inspection Skin General skin exam: no rashes or lesions noted Neuro General: patient oriented x3, gait normal, tone normal and moves all extremities Extrem General: Yes normal to inspection and Yes capillary refill normal Assessment & Plan Assessment & Plan (1) Weak urinary stream: Code(s): R39.12 - Poor urinary stream (2) Orchalgia: Code(s): N50.819 - Testicular pain, unspecified Qualifiers: Laterality: left Qualified Code(s): N50.812 - Left testicular pain (3) Erectile dysfunction: Code(s): N52.9 - Male erectile dysfunction, unspecified Qualifiers: Erectile dysfunction type: vasculogenic Vasculogenic erectile dysfunction type: due to arterial insufficiency Qualified Code(s): N52.01 - Erectile dysfunction due to arterial insufficiency Plan 4 week tamsulosin Medications: New tamsulosin 0.4 mg PO BEDTIME 30 caps 0RF 30 days R39.12 - Poor urinary stream Patient Instructions: Imaging studies, laboratory and physical exam results were discussed and reviewed in detail. No major barriers to patient understanding were identified. An opportunity to ask questions regarding the treatment plan was provided. All questions were answered. The patient expressed understanding and agreement with the above treatment plan. The patient is aware they should contact our office by phone for worsening of their current condition or the appearance of new urologic symptoms. Compliance is encouraged with any medications and followup testing that is ordered. It is a privilege to participate in the urologic care of your patient. If you have any questions or concerns regarding treatment for the above conditions, or other urologic issues, please do not hesitate to contact me. The office telephone contact is [phone]. This note is constructed using voice recognition software. While every effort has been made to ensure accuracy near eastern archaeology lecturer errors may have been included. Yours sincerely, Dr Mario Archibald MD, [facility] - Urology Providers of Expert, Compassionate Care for the Genitourinary System Coding Level of Care Code Est Pt Level 4 (16140) Diagnoses Weak urinary stream R39.12 Pain in left testicle N50.812 Laterality: left Erectile dysfunction due to arterial insufficiency N52.01 Erectile dysfunction type: vasculogenic Vasculogenic erectile dysfunction type: due to arterial insufficiency
== END 2023-02-22 15:42 | disposition home or self-care (01) ==
PROVIDERS: PCP Nurse Practitioner Family; Visit Provider Urology
DX: R39.12 Poor urinary stream (principal); N50.812 Left testicular pain; N52.01 Erectile dysfunction due to arterial insufficiency
CPT/HCPCS: 99214

== ENCOUNTER → 2023-02-22 14:55 | Outpatient (BNVA) | payer OTHER, SELFPAY | PROVIDERS: PCP Nurse Practitioner Family; Visit Provider Urology | DX: N50.812 Left testicular pain (principal); N52.01 Erectile dysfunction due to arterial insufficiency; R39.12 Poor urinary stream | CPT/HCPCS: 99212 ==

== ENCOUNTER 2023-03-10 15:56 | Outpatient (AMB) | payer OTHER, SELFPAY ==
--- NOTE | 2023-03-10 16:02 | A.OFFPC_ITS ---
Vital Signs 03/10/23 16:10 Height 6 ft Weight 267 lb 8 oz BMI 36.3 BP 118/60 Blood Pressure Location Lt brachial Position Sitting Respiration 13 Pulse 117 H Pulse Source Pulse Oximeter Temp 98.9 F Temp Source Oral Pulse Oximetry (%) 98 Oxygen Delivery Method Room Air Intake Visit Reasons: f/u anxiety, depression Intake Note: Patient is here to follow up with his anxiety and depression. 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 Accompanied by: Self / Same As Patient Allergies adhesive Allergy (Intermediate, Verified 03/10/23 16:26) RASH bee pollen [BEE STINGS] Allergy (Mild, Verified 03/10/23 16:26) Swelling gabapentin Adverse Reaction (Intermediate, Verified 03/10/23 16:26) Diarrhea mushroom Adverse Reaction (Intermediate, Verified 03/10/23 16:26) VIOLENTLY ILL fish Adverse Reaction (Intermediate, Uncoded 03/10/23 16:26) Diarrhea wine Adverse Reaction (Intermediate, Uncoded 03/10/23 16:26) Diarrhea Medication List - Last Reconciled 03/10/23 by Lauren Marcial CNP fluoxetine 20 mg PO DAILY 30 days ibuprofen (Advil) 200 mg PO Q6H PRN levothyroxine 100 mcg PO DAILY 30 days tamsulosin 0.4 mg PO BEDTIME 30 days Tobacco use date assessed: 02/09/23 HPI HPI Comments History of Present Illness Details 42-year-old male presents for anxiety an d depression follow-up. His last office visit was almost 2 weeks ago. He is was prescribed fluoxetine. He was referred to [facility] Psychiatry by the social professionals for possible TMS and ECT. He notes that he has been taking his medications as prescribed. He notes that things have been relative slightly better. He has a positive response today to the PHQ-9 question regarding Thoughts that you would be better off or of hurting yourself in some way. He notes that he is worried that his symptoms may improve due to the approaching holidays; he does not have access to see his two children who are 19 and 22 years old. He denies SI/HI ideation, denies plans of committing suicide, and refused to contracts for safety. He notes that he was contacted twice for an appointment with [facility] psychiatry. However, he is awaiting answers to billing questions before proceeding to schedule an appointment. [facility] Medical History History of substance abuse Anxiety Alcoholism Arthritis Thyroid disease COPD (chronic obstructive pulmonary disease) Irritable bowel syndrome Hypothyroid Depression Degenerative disc disease HTN (hypertension) Chronic back pain Hemochromatosis Surgical History History of epididymectomy History of back surgery History of surgery History of vasectomy Family History Mother Diabetes Father Liver cancer Bone cancer Liver disease Social History Household Members: Friend(s) Housing: House Are you a primary care management specialist to a significant other at home: No Do you presently have visiting nurse or other home services: No Alcohol intake: unknown Patient Tobacco Use Status: Current everyday Tobacco user Tobacco use type: Cigarette Cigarette Packs Per Day: 1 Cigarettes Per Day: 10 e-Cigarette/Vaping Use: Never Used Substance Use Type: Marijuana service: No Current occupational status: disabled Cognitive needs: No Hearing needs: Yes Vision needs: Yes Questionnaire PHQ-9 Over the last 2 weeks, how often have you been bothered by any of the following problems? 1. Little interest or pleasure in doing things: nearly every day 2. Feeling down, depressed, or hopeless: more than half the days 3. Trouble falling or staying asleep, or sleeping too much: more than half the days 4. Feeling tired or having little energy: more than half the days 5. Poor appetite or overeating: several days 6. Feeling bad about yourself - or that you are a failure or have let yourself or your family down: several days 7. Trouble concentrating on things, such as reading the newspaper or watching television: several days 8. Moving or speaking so slowly that other people could have noticed. Or the opposite - being so fidgety or restless that you have been moving around a lot more than usual: several days 9. Thoughts that you would be better off or of hurting yourself in some way: several days Total score: 14 Depression Screening Interpretation: Positive Depression Screening Follow-up: Existing condition, In treatment and New Medication prescribed Depression Screening Done: Yes 13999 - PHQ-9 Billing: Yes Source: Developed by Drs. Jasper Islas, Laila Camilo, Kaveh Bonilla and colleagues, with an educational lauryn from [employer]. Thrive Questionnaire Date Thrive assessed: 02/09/23 JOZEF-7 AMB Questionnaire JOZEF-7 Date JOZEF - 7 assessed: 03/10/23 Feeling nervous, anxious, or on edge: 2 = More than half the days Not being able to stop or control worryin = More than half the days Worrying too much about different things: 1 = Several days Trouble relaxin = More than half the days Being so restless that it is hard to sit still: 1 = Several days Becoming easily annoyed or irritable: 1 = Several days Feeling afraid as if something awful might happen: 1 = Several days Total JOZEF-7 score (0-4 normal; 5-9 mild; 10-14 moderate; 15-21 severe): 10 Source: Developed by Drs. Jasper Islas, Laila Camilo, Kaveh Bonilla and colleagues, with an educational lauryn from [employer]. JOZEF-7 Assessment Billing JOZEF-7 Assessment Tool: JOZEF-7 Assessment 26994 Physical exam (Primary Care) Tobacco/Smoking Status: Tobacco use Status Tobacco use date assessed 02/09/23 03/10/23 16:04 Patient Tobacco Use Status Current everyday Tobacco 03/10/23 16:04 Tobacco use type Cigarette 03/10/23 16:04 e-Cigarette/Vaping Use Never Used 03/10/23 16:04 Depression Screening Interpretation: Positive Depression Screening Follow-up: Existing condition, In treatment and New Medication prescribed Thrive Assessment: Date of Thrive Assessment Date Thrive assessed 02/09/23 03/10/23 16:04 Assessment and Plan Assessment & Plan (1) Anxiety: Code(s): F41.9 - Anxiety disorder, unspecified Plan: PHQ-9 and JOZEF-7 scores revealed moderate anxiety and depression respectively Constant right lower extremity movements observed. Heart rate is elevated, 117. Likely physical symptoms of anxiety Propanolol 20 mg b.i.d. as needed for anxiety ordered. Take as prescribed Will increase fluoxetine to 40 mg daily. Take as prescribed Routine exercise encouraged Encouraged to contact [facility] Psychiatry to schedule an appointment Follow-up with PCP in 1 month or return sooner with worsening or new symptoms Verbalized understanding and agreed with treatment plan. (2) Depression: Comment: history of suicidal ideation/has had ECT treatments Code(s): F32.9 - Major depressive disorder, single episode, unspecified Plan: As above Medications: New fluoxetine 40 mg PO DAILY 90 caps 1RF 90 days propranolol 20 mg PO BID PRN 60 tabs 1RF anxiety Discontinued fluoxetine Discontinued Reason: Doctor's Order 20 mg PO DAILY 30 caps 3RF 30 days Coding Level of Care Code Est Pt Level 3 (76819) Diagnoses Anxiety F41.9 Depression F32.9 Additional Codes JOZEF-7 Assessment Billing - JOZEF-7 Assessment Tool: JOZEF-7 Assessment 45911 ([id number])
[2023-03-10 16:10] VITALS: BP 118/60; PULSE 117; RESP 13; TEMP 37.2; O2SAT 98; BMI 36.3
== END 2023-03-10 16:49 | disposition home or self-care (01) ==
PROVIDERS: PCP Nurse Practitioner Family; Visit Provider Nurse Practitioner Family
DX: F41.9 Anxiety disorder, unspecified (principal); F32.9 Major depressive disorder, single episode, unspecified
CPT/HCPCS: 96127; 99213

== ENCOUNTER 2023-03-16 09:41 | Outpatient (REF) | payer OTHER, SELFPAY | END 2023-03-16 09:42 | disposition home or self-care (01) | LOC: HO.BBR 09:41 | PROVIDERS: PCP Nurse Practitioner Family; Visit Provider Internal Medicine | DX: Z13.89 Encounter for screening for other disorder (principal) ==

== ENCOUNTER 2023-03-25 13:40 | Outpatient (REF) | payer OTHER, SELFPAY ==
[2023-03-25 15:54] LABS: TSH reflex Free T4 3.42 uIU/mL (0.32-4.0)
== END 2023-03-25 13:41 | disposition home or self-care (01) ==
LOC: HO.LAB 13:40
PROVIDERS: PCP Nurse Practitioner Family; Visit Provider Nurse Practitioner Family
DX: E03.9 Hypothyroidism, unspecified (principal)
CPT/HCPCS: 36415; 84443

== ENCOUNTER 2023-10-24 10:53 | Outpatient (AMB) | payer OTHER, SELFPAY ==
[2023-10-24 10:57] VITALS: BP 138/80; PULSE 96; RESP 14; TEMP 36.6; O2SAT 98; BMI 37.6
--- NOTE | 2023-10-24 10:57 | A.OFFPC_ITS ---
Vital Signs 10/24/23 10:57 Height 6 ft Weight 277 lb BMI 37.6 BP 138/80 Blood Pressure Location Rt brachial Position Sitting Respiration 14 Pulse 96 Pulse Source Pulse Oximeter Temp 97.8 F Temp Source Temporal Artery Scan Pulse Oximetry (%) 98 Oxygen Delivery Method Room Air Intake Visit Reasons: Med f/up Allergies adhesive Allergy (Intermediate, Verified 10/24/23 11:01) RASH bee pollen [BEE STINGS] Allergy (Mild, Verified 10/24/23 11:01) Swelling gabapentin Adverse Reaction (Intermediate, Verified 10/24/23 11:01) Diarrhea mushroom Adverse Reaction (Intermediate, Verified 10/24/23 11:01) VIOLENTLY ILL fish Adverse Reaction (Intermediate, Uncoded 07/04/23 13:05) Diarrhea wine Adverse Reaction (Intermediate, Uncoded 07/04/23 13:05) Diarrhea Tobacco use date assessed: 10/24/23 Dental Screening Dental Screen Date: 10/24/23 Did you have a dental visit in the last 12 months?: No Did you have a dental problem in the last 6 months where you did not have access to dental care?: No Was dental information given to patient?: Yes HPI HPI Comments History of Present Illness Details 43-year-old male presents for anxiety an d depression follow-up. His last office visit was on 03/10/2023. He did not follow-up in 1 month as instructed. He has been out of fluoxetine for a little over a month, propranol for almost 4 months, and levothyroxine for about 3 weeks. Those meds were recently refilled by her PCP, but he has not picked them up because I do not have money. I am waiting to get paid so I can pick them up. He notes that the only medication that has helped him is levothyroxine and that fluoxetine has been ineffective in managing his depressive symptoms. He reports worsening depressive and anxiety symptoms since his last visit. He notes passive suicide ideation. He denies active suicidal ideation. He denies homicidal ideation. He reports chronic persistent LBP which intensifies with physical activities. He describes the pain as sharp, nerve pain. Tylenol and Ibuprofen does not provide relief. He does not want to be referred to a specialist because I can't afford medical care. He notes that he cannot afford copays. He added that usually he usually cannot afford transportation to his appointments. He did not schedule an appointment to establish with [facility] because I can't not afford to pay them. He states that he can not frequent follow-up visit, sooner than monthly, because he cannot afford frequent follow-ups. [facility] Medical History History of substance abuse Anxiety Alcoholism Arthritis Thyroid disease COPD (chronic obstructive pulmonary disease) Irritable bowel syndrome Hypothyroid Depression Degenerative disc disease HTN (hypertension) Chronic back pain Hemochromatosis Surgical History History of epididymectomy History of back surgery History of surgery History of vasectomy Family History Mother Diabetes Father Liver cancer Bone cancer Liver disease Social History Household Members: Friend(s) Housing: House Are you a primary intensive care medicine specialist to a significant other at home: No Do you presently have visiting nurse or other home services: No Alcohol intake: unknown Comment: medicate with ketorolac and oxycodone Patient Tobacco Use Status: Current everyday Tobacco user Tobacco use type: Cigarette Cigarette Packs Per Day: 0.45 Cigarettes Per Day: 7 e-Cigarette/Vaping Use: Never Used Substance Use Type: Marijuana service: No Current occupational status: disabled Cognitive needs: No Hearing needs: No Vision needs: No Questionnaire PHQ-9 Over the last 2 weeks, how often have you been bothered by any of the following problems? 1. Little interest or pleasure in doing things: nearly every day 2. Feeling down, depressed, or hopeless: nearly every day 3. Trouble falling or staying asleep, or sleeping too much: nearly every day 4. Feeling tired or having little energy: nearly every day 5. Poor appetite or overeating: nearly every day 6. Feeling bad about yourself - or that you are a failure or have let yourself or your family down: nearly every day 7. Trouble concentrating on things, such as reading the newspaper or watching television: nearly every day 8. Moving or speaking so slowly that other people could have noticed. Or the opposite - being so fidgety or restless that you have been moving around a lot more than usual: more than half the days 9. Thoughts that you would be better off or of hurting yourself in some way: nearly every day Total score: 26 Depression Screening Interpretation: Positive Depression Screening Follow-up: Existing condition, In treatment and New Medication prescribed Depression Screening Done: Yes 89080 - PHQ-9 Billing: Yes Source: Developed by Drs. Jasper Islas, Laila Camilo, Kaveh Bonilla and colleagues, with an educational lauryn from [employer]. Thrive Questionnaire Date Thrive assessed: 02/09/23 JOZEF-7 AMB Questionnaire JOZEF-7 Date JOZEF - 7 assessed: 10/24/23 Feeling nervous, anxious, or on edge: 3 = Nearly every day Not being able to stop or control worryin = Nearly every day Worrying too much about different things: 3 = Nearly every day Trouble relaxin = Nearly every day Being so restless that it is hard to sit still: 2 = More than half the days Becoming easily annoyed or irritable: 3 = Nearly every day Feeling afraid as if something awful might happen: 0 = Not at all Total JOZEF-7 score (0-4 normal; 5-9 mild; 10-14 moderate; 15-21 severe): 17 Source: Developed by Drs. Jasper Islas, Laila Camilo, Kaveh Bonilla and colleagues, with an educational lauryn from [employer]. JOZEF-7 Assessment Billing JOZEF-7 Assessment Tool: JOZEF-7 Assessment 68865 Review of Systems Const Details: Const Denies chills, Denies fatigue, Denies fever(s), Denies headache(s) and Denies weakness ENT Denies dizziness and Denies headache(s) Card Denies chest pain, Denies lightheadedness, Denies dyspnea and Denies other (Palpitations) Resp Denies cough, Denies dyspnea, Denies wheezing and Denies other ( shortness of breath) GI Denies abdominal pain, Denies melena, Denies hematochezia, Denies change in bowel habits, Denies dyspepsia and Denies nausea Denies hematuria and Denies dysuria Musc Denies abnormal gait, Denies myalgias, Denies arthralgias, Denies numbness and Denies tingling Skin/Breast Denies rash, Denies unusual bruising and Denies wounds Neuro Denies abnormal gait, Denies dizziness, Denies headache(s), Denies memory loss, Denies numbness, Denies Sensory deficit (Neuro), Denies tingling and Denies weakness Psych Denies anxiety, Denies depression, Denies memory loss Endo Denies cold intolerance, Denies fatigue, Denies heat intolerance, Denies polydipsia and Denies polyuria Aller/Immun Denies wheezing Physical exam (Primary Care) Vital Signs: Last Vital Signs Temp 97.8 F 10/24/23 10:57 Pulse 96 10/24/23 10:57 Resp 14 10/24/23 10:57 BP 138/80 10/24/23 10:57 Pulse Ox 98 10/24/23 10:57 Oxygen Delivery Method Room Air 10/24/23 10:57 BMI result Body Mass Index 37.6 Tobacco/Smoking Status: Tobacco use Status Tobacco use date assessed 10/24/23 10/24/23 11:05 Patient Tobacco Use Status Current everyday Tobacco 10/24/23 11:02 Tobacco use type Cigarette 10/24/23 11:02 e-Cigarette/Vaping Use Never Used 10/24/23 11:02 PHQ-9: PHQ-9 Score PHQ-9: Total score 26 10/24/23 11:08 Depression Screening Interpretation: Positive Depression Screening Follow-up: Existing condition, In treatment and New Medication prescribed Thrive Assessment: Date of Thrive Assessment Date Thrive assessed 02/09/23 10/24/23 11:02 Const Other: General: no acute distress and well developed Nutritional Appearance: well nourished Orientation/consciousness: patient oriented x3 HENMT Head: Yes normocephalic and Yes atraumatic Eyes General: appearance normal, both eyes and all related structures Pupils: Equal, round and reactive pupils present EOM: EOMs intact bilaterally Resp Effort & Inspection: normal respiratory effort Auscultation: clear to auscultation bilaterally Cardio Rate: regular rate Rhythm: regular rhythm Heart sounds: S1 normal heart sound present, S2 normal heart sound present, no gallops, no murmurs and no rubs GI Palpation (GI): No Abdominal aortic bruit present, Soft to palpation, nontender, No hepatosplenomegaly present and No Rebound tenderness present Auscultation: normal bowel sounds General: Yes no CVA tenderness Back/Spine/Pelvis Back: no CVA tenderness Cervical Spine: cervical ROM normal and No Cervical spine tenderness Thoracic/Lumbar Spine: thoraco-lumbar ROM normal, No pain with thoraco-lumbar ROM, No thoracic spinal tenderness and No lumbar spinal tenderness Extrem General: Yes normal to inspection, No edema and No calf tenderness Skin General: warm and dry. Normal skin color. Normal skin turgor Neuro General: patient oriented x3, gait normal and no focal neuro deficit Cranial nerves: Yes Equal, round and reactive pupils present Cognition (Neuro): normal cognition Gait exam (Neuro): Normal gait present Sensory Exam: No Sensory deficit (Neuro) Psych Appearance: grossly normal Affect: normal affect Attitude: cooperative Thought process: Normal thought process present Assessment and Plan Assessment & Plan (1) Depression: Comment: history of suicidal ideation/has had ECT treatments Code(s): F32.9 - Major depressive disorder, single episode, unspecified Plan: Reports worsening depressive and anxiety symptoms PHQ-9 and JOZEF-7 scores revealed severe depression and anxiety Fluoxetine was not effective Will discontinue fluoxetine at this time. Will start duloxetine 60 mg twice daily to target depression and low back pain. Advised to take as prescribed. Instructed on the risks, benefits, and potential adverse reactions of the medication Continue to take propranolol as prescribed Declines referral to the [facility] to find help help with medication and transportation costs. He states that I do not trust people because they end up using me. He will say and off to pay for something but eventually I will get billed for it and eventually i'll be homeless Follow-up in 1 month or return sooner with worsening or new symptoms Verbalized understanding and agreed with treatment plan (2) Anxiety: Code(s): F41.9 - Anxiety disorder, unspecified Plan: As above (3) Hypothyroid: Code(s): E03.9 - Hypothyroidism, unspecified Plan: Recent TSH level in March 2023 was normal, 3.42 Continue to take levothyroxine 100 mcg daily TSH/T4 ordered. Will review results and make changes as needed Verbalized understanding and agreed with the plan Orders: Orders TSH reflex Free T4 Today E03.9 - Hypothyroidism, unspecified Medications: New duloxetine 60 mg PO DAILY 90 days 90 caps 1RF Changed From levothyroxine 100 mcg PO DAILY 30 days 30 tabs 0RF To levothyroxine 100 mcg PO DAILY 90 days 90 tabs 1RF Refilled propranolol 20 mg PO BID PRN 60 tabs 3RF anxiety Discontinued fluoxetine Discontinued Reason: Doctor's Order 40 mg PO DAILY 30 days 30 caps 0RF Coding Level of Care Code Est Pt Level 4 (03842) Complex EM visit Add On G2211 Diagnoses Depression F32.9 Anxiety F41.9 Hypothyroid E03.9 Additional Codes JOZEF-7 Assessment Billing - JOZEF-7 Assessment Tool: JOZEF-7 Assessment [id number] ([id number])
== END 2023-10-24 11:53 | disposition home or self-care (01) ==
PROVIDERS: PCP Nurse Practitioner Family; Visit Provider Nurse Practitioner Family
DX: F41.9 Anxiety disorder, unspecified (principal); F32.9 Major depressive disorder, single episode, unspecified; E03.9 Hypothyroidism, unspecified
CPT/HCPCS: 96127; 99214; G2211

== ENCOUNTER 2023-11-08 13:17 | Outpatient (REF) | payer OTHER, SELFPAY ==
[2023-11-08 14:26] LABS: TSH reflex Free T4 7.68 uIU/mL (0.32-4.0)
[2023-11-08 15:53] LABS: Free T4 (Free Thyroxine) 1.08 ng/dL (0.71-1.85)
== END 2023-11-08 13:18 | disposition home or self-care (01) ==
LOC: HO.LAB 13:17
PROVIDERS: PCP Nurse Practitioner Family; Visit Provider Nurse Practitioner Family
DX: E03.9 Hypothyroidism, unspecified (principal)
CPT/HCPCS: 36415; 84439; 84443

== ENCOUNTER 2023-11-29 09:49 | Outpatient (AMB) | payer OTHER, SELFPAY ==
--- NOTE | 2023-11-29 09:52 | A.OFFPC_ITS ---
Vital Signs 11/29/23 09:55 Weight 267 lb 2 oz BP 122/74 Blood Pressure Location Rt brachial Position Sitting Pulse 86 Pulse Source Pulse Oximeter Temp 97.7 F Temp Source Temporal Artery Scan Pulse Oximetry (%) 96 Oxygen Delivery Method Room Air Intake Visit Reasons: 1 mos anxiety, depression Intake Note: patient here for follow up on anxiety and depression. Special Population Paraprofessional Required: No Allergies adhesive Allergy (Intermediate, Verified 11/29/23 10:17) RASH bee pollen [BEE STINGS] Allergy (Mild, Verified 11/29/23 10:17) Swelling gabapentin Adverse Reaction (Intermediate, Verified 11/29/23 10:17) Diarrhea mushroom Adverse Reaction (Intermediate, Verified 11/29/23 10:17) VIOLENTLY ILL fish Adverse Reaction (Intermediate, Uncoded 11/29/23 10:17) Diarrhea wine Adverse Reaction (Intermediate, Uncoded 11/29/23 10:17) Diarrhea Medication List - Last Reconciled 11/29/23 by Lauren Marcial CNP duloxetine 60 mg PO DAILY 90 days ibuprofen (Advil) 200 mg PO Q6H PRN levothyroxine 100 mcg PO DAILY 90 days propranolol 20 mg PO BID PRN Tobacco use date assessed: 10/24/23 Dental Screening Dental Screen Date: 10/24/23 HPI HPI Comments History of Present Illness Details 43-year-old male presents for anxiety an d depression follow-up. He was started on duloxetine 60 mg daily at her last visit about a month ago. He is also on propranolol 20 mg twice daily. He admits to taking her medication as prescribed without adverse reactions. He reports depressive and anxiety symptoms with minimal improvement since starting Duloxetine. He notes passive suicide ideation which are less than before He denies active suicidal ideation. He denies homicidal ideation. He notes that he he continues to experience pain, anger, hatred, and dislike of being around others. He states that he generally eats well, sleep well, and walks routinely for exercise. He lost 16 lb since his last visit. [facility] Medical History (Updated 11/29/23 @ 10:46 by Lauren Marcial CNP) History of substance abuse Anxiety Alcoholism Arthritis Thyroid disease COPD (chronic obstructive pulmonary disease) Irritable bowel syndrome Hypothyroid Depression Degenerative disc disease HTN (hypertension) Chronic back pain Hemochromatosis Surgical History History of epididymectomy History of back surgery History of surgery History of vasectomy Family History Mother Diabetes Father Liver cancer Bone cancer Liver disease Social History Household Members: Friend(s) Housing: House Are you a primary healthcare economics consultant to a significant other at home: No Do you presently have visiting nurse or other home services: No Alcohol intake: unknown Comment: medicate with ketorolac and oxycodone Patient Tobacco Use Status: Current everyday Tobacco user Tobacco use type: Cigarette Cigarette Packs Per Day: 0.45 Cigarettes Per Day: 7 e-Cigarette/Vaping Use: Never Used Substance Use Type: Marijuana service: No Current occupational status: disabled Cognitive needs: No Hearing needs: No Vision needs: No Questionnaire PHQ-9 Over the last 2 weeks, how often have you been bothered by any of the following problems? 1. Little interest or pleasure in doing things: nearly every day 2. Feeling down, depressed, or hopeless: more than half the days 3. Trouble falling or staying asleep, or sleeping too much: more than half the days 4. Feeling tired or having little energy: more than half the days 5. Poor appetite or overeating: more than half the days 6. Feeling bad about yourself - or that you are a failure or have let yourself or your family down: nearly every day 7. Trouble concentrating on things, such as reading the newspaper or watching television: more than half the days 8. Moving or speaking so slowly that other people could have noticed. Or the opposite - being so fidgety or restless that you have been moving around a lot more than usual: more than half the days 9. Thoughts that you would be better off or of hurting yourself in some way: nearly every day Total score: 21 Depression Screening Interpretation: Positive Depression Screening Follow-up: Existing condition, In treatment and New Medication prescribed Depression Screening Done: Yes 78513 - PHQ-9 Billing: Yes Source: Developed by Drs. Jasper Islas, Laila Camilo, Kaveh Bonilla and colleagues, with an educational lauryn from [employer]. Thrive Questionnaire Date Thrive assessed: 02/09/23 AUDIT C Alcohol Use Questionnaire (AUDIT-C) 1. How often do you have a drink containing alcohol?: Monthly or less 2. How many drinks containing alcohol do you have on a typical day when you are drinking?: 1 or 2 3. How often do you have six or more drinks on one occasion?: Never Total Score: 1 JOZEF-7 AMB Questionnaire JOZEF-7 Date JOZEF - 7 assessed: 11/29/23 Feeling nervous, anxious, or on edge: 2 = More than half the days Not being able to stop or control worryin = More than half the days Worrying too much about different things: 2 = More than half the days Trouble relaxin = More than half the days Being so restless that it is hard to sit still: 3 = Nearly every day Becoming easily annoyed or irritable: 3 = Nearly every day Feeling afraid as if something awful might happen: 2 = More than half the days Total JOZEF-7 score (0-4 normal; 5-9 mild; 10-14 moderate; 15-21 severe): 16 Source: Developed by Drs. Jasper Islas, Laila Camilo, Kaveh Bonilla and colleagues, with an educational lauryn from [employer]. JOZEF-7 Assessment Billing JOZEF-7 Assessment Tool: JOZEF-7 Assessment 40199 Review of Systems Const Details: Const Denies chills, Denies fatigue, Denies fever(s), Denies headache(s) and Denies weakness ENT Denies dizziness and Denies headache(s) Card Denies chest pain, Denies lightheadedness, Denies dyspnea and Denies other (Palpitations) Resp Denies cough, Denies dyspnea, Denies wheezing and Denies other ( shortness of breath) GI Denies abdominal pain, Denies melena, Denies hematochezia, Denies change in bowel habits, Denies dyspepsia and Denies nausea Denies hematuria and Denies dysuria Musc Denies abnormal gait, Denies myalgias, Denies arthralgias, Denies numbness and Denies tingling Skin/Breast Denies rash, Denies unusual bruising and Denies wounds Neuro Denies abnormal gait, Denies dizziness, Denies headache(s), Denies memory loss, Denies numbness, Denies Sensory deficit (Neuro), Denies tingling and Denies weakness Psych Reports anxiety, Reports depression, Denies memory loss Endo Denies cold intolerance, Denies fatigue, Denies heat intolerance, Denies polydipsia and Denies polyuria Aller/Immun Denies wheezing Physical exam (Primary Care) Vital Signs: Last Vital Signs Temp 97.7 F 11/29/23 09:55 Pulse 86 11/29/23 09:55 BP 122/74 11/29/23 09:55 Pulse Ox 96 11/29/23 09:55 Oxygen Delivery Method Room Air 11/29/23 09:55 Tobacco/Smoking Status: Tobacco use Status Tobacco use date assessed 10/24/23 11/29/23 09:59 Patient Tobacco Use Status Current everyday Tobacco 11/29/23 09:59 Tobacco use type Cigarette 11/29/23 09:59 e-Cigarette/Vaping Use Never Used 11/29/23 09:59 PHQ-9: PHQ-9 Score PHQ-9: Total score 21 11/29/23 10:02 Depression Screening Interpretation: Positive Depression Screening Follow-up: Existing condition, In treatment and New Medication prescribed Thrive Assessment: Date of Thrive Assessment Date Thrive assessed 02/09/23 11/29/23 09:59 Const Other: General: no acute distress and well developed Nutritional Appearance: well nourished Orientation/consciousness: patient oriented x3 HENMT Head: Yes normocephalic and Yes atraumatic Eyes General: appearance normal, both eyes and all related structures Pupils: Equal, round and reactive pupils present EOM: EOMs intact bilaterally Resp Effort & Inspection: normal respiratory effort Auscultation: clear to auscultation bilaterally Cardio Rate: regular rate Rhythm: regular rhythm Heart sounds: S1 normal heart sound present, S2 normal heart sound present, no gallops, no murmurs and no rubs GI Palpation (GI): No Abdominal aortic bruit present, Soft to palpation, nontender, No hepatosplenomegaly present and No Rebound tenderness present Auscultation: normal bowel sounds General: Yes no CVA tenderness Back/Spine/Pelvis Back: no CVA tenderness Cervical Spine: cervical ROM normal and No Cervical spine tenderness Thoracic/Lumbar Spine: thoraco-lumbar ROM normal, No pain with thoraco-lumbar ROM, No thoracic spinal tenderness and No lumbar spinal tenderness Extrem General: Yes normal to inspection, No edema and No calf tenderness Skin General: warm and dry. Normal skin color. Normal skin turgor Neuro General: patient oriented x3, gait normal and no focal neuro deficit Cranial nerves: Yes Equal, round and reactive pupils present Cognition (Neuro): normal cognition Gait exam (Neuro): Normal gait present Sensory Exam: No Sensory deficit (Neuro) Psych Appearance: grossly normal Affect: normal affect Attitude: cooperative Thought process: Normal thought process present Assessment and Plan Assessment & Plan (1) Depression: Comment: history of suicidal ideation/has had ECT treatments Code(s): F32.9 - Major depressive disorder, single episode, unspecified Plan: Minimal improvement of anxiety and depression symptoms on current treatment regimen PHQ-9 and JOZEF-7 scores revealed severe depression and anxiety Will start Abilify 5 mg daily. Advised to take as prescribed. Instructed on the risks, benefits, and potential adverse reactions of the medication Continue to take duloxetine and propranolol as prescribed Routine exercise encouraged Follow-up in 1 month or sooner with worsening or new symptoms Verbalized understanding and agreed with the treatment plan (2) Anxiety: Code(s): F41.9 - Anxiety disorder, unspecified Plan: As above (3) Hypothyroid: Code(s): E03.9 - Hypothyroidism, unspecified Plan: His last TSH last month was elevated, 7.68. Likely due to missing his dose for 3 weeks Encouraged to get TSH blood work done today. Will review results and make changes as needed Verbalized understanding and agreed with treatment plan (4) Chronic back pain: Code(s): M54.9 - Dorsalgia, unspecified; G89.29 - Other chronic pain Plan: Chronic right-sided low back pain Continue current treatment regimen Exercise and stretching as tolerable Follow-up with worsening or new symptoms Verbalized understanding and agreed with treatment plan Orders: Orders TSH reflex Free T4 Today E03.9 - Hypothyroidism, unspecified Medications: New aripiprazole (Abilify) 5 mg PO DAILY 30 days 30 tabs 3RF Coding Level of Care Code Est Pt Level 4 (32107) Complex EM visit Add On G2211 Diagnoses Depression F32.9 Anxiety F41.9 Hypothyroid E03.9 Chronic back pain M54.9; G89.29 Additional Codes JOZEF-7 Assessment Billing - JOZEF-7 Assessment Tool: JOZEF-7 Assessment [id number] ([id number])
[2023-11-29 09:55] VITALS: BP 122/74; PULSE 86; TEMP 36.5; O2SAT 96
== END 2023-11-29 10:45 | disposition home or self-care (01) ==
PROVIDERS: PCP Nurse Practitioner Family; Visit Provider Nurse Practitioner Family
DX: E03.9 Hypothyroidism, unspecified (principal); F32.9 Major depressive disorder, single episode, unspecified; F41.9 Anxiety disorder, unspecified; M54.9 Dorsalgia, unspecified; G89.29 Other chronic pain
CPT/HCPCS: 96127; 99214; G2211

== ENCOUNTER 2023-11-29 10:49 | Outpatient (REF) | payer OTHER, SELFPAY ==
[2023-11-29 14:30] LABS: TSH reflex Free T4 9.33 uIU/mL (0.32-4.0)
[2023-11-29 16:14] LABS: Free T4 (Free Thyroxine) 1.01 ng/dL (0.71-1.85)
== END 2023-11-29 10:50 | disposition home or self-care (01) ==
LOC: HO.WFDLDS 10:49
PROVIDERS: Visit Provider Nurse Practitioner Family
DX: E03.9 Hypothyroidism, unspecified (principal)
CPT/HCPCS: 36415; 84439; 84443

== ENCOUNTER 2024-01-02 16:30 | Outpatient (AMB) | payer OTHER, SELFPAY ==
--- NOTE | 2024-01-02 16:32 | MHC.PC.OV ---
Vital Signs 01/02/24 16:35 Height 6 ft Weight 267 lb 8 oz BMI 36.3 BP 138/88 Blood Pressure Location Rt brachial Position Sitting Respiration 16 Pulse 93 Pulse Source Pulse Oximeter Temp 97.7 F Temp Source Oral Pulse Oximetry (%) 95 Oxygen Delivery Method Room Air Intake Visit Reasons: 1 mos anxiety, depression Intake Note: patient here for 1 month follow up on anxiety and depression. Pluck Separator Required: No Allergies adhesive Allergy (Intermediate, Verified 01/02/24 16:45) RASH bee pollen [BEE STINGS] Allergy (Mild, Verified 01/02/24 16:45) Swelling gabapentin Adverse Reaction (Intermediate, Verified 01/02/24 16:45) Diarrhea mushroom Adverse Reaction (Intermediate, Verified 01/02/24 16:45) VIOLENTLY ILL fish Adverse Reaction (Intermediate, Uncoded 01/02/24 16:45) Diarrhea wine Adverse Reaction (Intermediate, Uncoded 01/02/24 16:45) Diarrhea Medication List - Last Reconciled 01/02/24 by Lauren Marcial CNP aripiprazole (Abilify) 5 mg PO DAILY 30 days duloxetine 60 mg PO DAILY 90 days ibuprofen (Advil) 200 mg PO Q6H PRN levothyroxine 112 mcg PO DAILY 90 days propranolol 20 mg PO BID PRN Tobacco use date assessed: 01/02/24 Dental Screening Dental Screen Date: 01/02/24 Did you have a dental visit in the last 12 months?: No Did you have a dental problem in the last 6 months where you did not have access to dental care?: No Was dental information given to patient?: Patient declined HPI HPI Comments History of Present Illness Details 43-year-old male presents for anxiety and depression follow-up He admits to taking duloxetine , propanol, and Abilify as prescribed without adverse reactions He also admits to taking levothyroxine as prescribed without adverse reactions He reports controlled anxiety and depressive symptoms with he notes is due to avoiding people or social gathering. He notes that his anxiety worsens when he is around people. He notes that his chronic low back pain increases his anxiety and depressive symptoms. He states that my outlook has changed a bit since he started his current treatment regimen He continues to experience passive suicide ideation. He denies active suicidal ideation. He denies homicidal ideation He notes that he has been staying active and making healthy dietary choices. He generally sleeps well [facility] Medical History (Updated 11/29/23 @ 10:46 by Lauren Marcial CNP) History of substance abuse Anxiety Alcoholism Arthritis Thyroid disease COPD (chronic obstructive pulmonary disease) Irritable bowel syndrome Hypothyroid Depression Degenerative disc disease HTN (hypertension) Chronic back pain Hemochromatosis Surgical History History of epididymectomy History of back surgery History of surgery History of vasectomy Family History Mother Diabetes Father Liver cancer Bone cancer Liver disease Social History Household Members: Friend(s) Housing: House Are you a primary progressive care manager to a significant other at home: No Do you presently have visiting nurse or other home services: No Alcohol intake: unknown Comment: medicate with ketorolac and oxycodone Patient Tobacco Use Status: Current everyday Tobacco user Tobacco use type: Cigarette Cigarette Packs Per Day: 0.45 Cigarettes Per Day: 7 e-Cigarette/Vaping Use: Never Used Substance Use Type: Marijuana service: No Current occupational status: disabled Cognitive needs: No Hearing needs: No Vision needs: No Questionnaire PHQ-9 Over the last 2 weeks, how often have you been bothered by any of the following problems? 1. Little interest or pleasure in doing things: nearly every day 2. Feeling down, depressed, or hopeless: more than half the days 3. Trouble falling or staying asleep, or sleeping too much: more than half the days 4. Feeling tired or having little energy: nearly every day 5. Poor appetite or overeating: several days 6. Feeling bad about yourself - or that you are a failure or have let yourself or your family down: nearly every day 7. Trouble concentrating on things, such as reading the newspaper or watching television: more than half the days 8. Moving or speaking so slowly that other people could have noticed. Or the opposite - being so fidgety or restless that you have been moving around a lot more than usual: several days 9. Thoughts that you would be better off or of hurting yourself in some way: more than half the days Total score: 19 Depression Screening Interpretation: Positive Depression Screening Follow-up: Existing condition and In treatment Depression Screening Done: Yes 59578 - PHQ-9 Billing: Yes Source: Developed by Drs. Jasper Islas, Kaveh Riggs and colleagues, with an educational lauryn from [employer]. Thrive Questionnaire Date Thrive assessed: 02/09/23 JOZEF-7 AMB Questionnaire JOZEF-7 Date JOZEF - 7 assessed: 01/02/24 Feeling nervous, anxious, or on edge: 2 = More than half the days Not being able to stop or control worryin = Nearly every day Worrying too much about different things: 2 = More than half the days Trouble relaxin = More than half the days Being so restless that it is hard to sit still: 1 = Several days Becoming easily annoyed or irritable: 2 = More than half the days Feeling afraid as if something awful might happen: 2 = More than half the days Total JOZEF-7 score (0-4 normal; 5-9 mild; 10-14 moderate; 15-21 severe): 14 Source: Developed by Drs. Jasper Islas, Kaveh Riggs and colleagues, with an educational lauryn from [employer]. JOZEF-7 Assessment Billing JOZEF-7 Assessment Tool: JOZEF-7 Assessment 57013 Review of Systems Const Details: Const Denies chills, Denies fatigue, Denies fever(s), Denies headache(s) and Denies weakness ENT Denies dizziness and Denies headache(s) Card Denies chest pain, Denies lightheadedness, Denies dyspnea and Denies other (Palpitations) Resp Denies cough, Denies dyspnea, Denies wheezing and Denies other ( shortness of breath) GI Denies abdominal pain, Denies melena, Denies hematochezia, Denies change in bowel habits, Denies dyspepsia and Denies nausea Denies hematuria and Denies dysuria Musc Denies abnormal gait, Denies numbness and Denies tingling Skin/Breast Denies rash, Denies unusual bruising and Denies wounds Neuro Denies abnormal gait, Denies dizziness, Denies headache(s), Denies memory loss, Denies numbness, Denies Sensory deficit (Neuro), Denies tingling and Denies weakness Psych Denies anxiety, Denies depression, Denies memory loss Endo Denies cold intolerance, Denies fatigue, Denies heat intolerance, Denies polydipsia and Denies polyuria Aller/Immun Denies wheezing Physical exam (Primary Care) Vital Signs: Last Vital Signs Temp 97.7 F 01/02/24 16:35 Pulse 93 01/02/24 16:35 Resp 16 01/02/24 16:35 BP 138/88 01/02/24 16:35 Pulse Ox 95 01/02/24 16:35 Oxygen Delivery Method Room Air 01/02/24 16:35 BMI result Body Mass Index 36.3 Tobacco/Smoking Status: Tobacco use Status Tobacco use date assessed 01/02/24 01/02/24 16:35 Patient Tobacco Use Status Current everyday Tobacco 01/02/24 16:33 Tobacco use type Cigarette 01/02/24 16:33 e-Cigarette/Vaping Use Never Used 01/02/24 16:33 PHQ-9: PHQ-9 Score PHQ-9: Total score 19 01/02/24 16:39 Depression Screening Interpretation: Positive Depression Screening Follow-up: Existing condition and In treatment Thrive Assessment: Date of Thrive Assessment Date Thrive assessed 02/09/23 01/02/24 16:33 Const Other: General: no acute distress and well developed Nutritional Appearance: well nourished Orientation/consciousness: patient oriented x3 HENMT Head: Yes normocephalic and Yes atraumatic Eyes General: appearance normal, both eyes and all related structures Pupils: Equal, round and reactive pupils present EOM: EOMs intact bilaterally Resp Effort & Inspection: normal respiratory effort Auscultation: clear to auscultation bilaterally Cardio Rate: regular rate Rhythm: regular rhythm Heart sounds: S1 normal heart sound present, S2 normal heart sound present, no gallops, no murmurs and no rubs GI Palpation (GI): No Abdominal aortic bruit present, Soft to palpation, nontender, No hepatosplenomegaly present and No Rebound tenderness present Auscultation: normal bowel sounds General: Yes no CVA tenderness Back/Spine/Pelvis Back: no CVA tenderness Cervical Spine: cervical ROM normal and No Cervical spine tenderness Thoracic/Lumbar Spine: thoraco-lumbar ROM normal, No pain with thoraco-lumbar ROM, No thoracic spinal tenderness and No lumbar spinal tenderness Extrem General: Yes normal to inspection, No edema and No calf tenderness Skin General: warm and dry. Normal skin color. Normal skin turgor Neuro General: patient oriented x3, gait normal and no focal neuro deficit Cranial nerves: Yes Equal, round and reactive pupils present Cognition (Neuro): normal cognition Gait exam (Neuro): Normal gait present Sensory Exam: No Sensory deficit (Neuro) Psych Appearance: grossly normal Affect: normal affect Attitude: cooperative Thought process: Normal thought process present Assessment and Plan Assessment & Plan (1) Depression: Comment: history of suicidal ideation/has had ECT treatments Code(s): F32.9 - Major depressive disorder, single episode, unspecified Plan: Reports controlled anxiety and depressive symptoms Chronic back pain increase his anxiety and depressive symptoms PHQ-9 and JOZEF-7 scores revealed moderately severe depression and moderate anxiety respectively Continue current treatment regimen Routine exercise encouraged Encouraged to explore psychotherapy again. However, he notes that cost of treatment is a barrier Follow-up in 2 months or sooner with worsening or new symptoms Verbalized understanding and agreed with the treatment plan (2) Anxiety: Code(s): F41.9 - Anxiety disorder, unspecified Plan: As above (3) Chronic back pain: Code(s): M54.9 - Dorsalgia, unspecified; G89.29 - Other chronic pain Plan: Duloxetine as prescribed Follow-up worsening or new symptoms Verbalized understanding and agreed with the treatment plan (4) Hypothyroid: Code(s): E03.9 - Hypothyroidism, unspecified Plan: Recent TSH level was elevated, 9.33, T4 was normal Continue to take levothyroxine 112 mcg daily Encouraged to get TSH/T4 blood work done in 2 weeks. Will review results and make changes as needed Verbalized understanding and agreed with the treatment plan Orders: Orders TSH reflex Free T4 Today E03.9 - Hypothyroidism, unspecified Coding Level of Care Code Est Pt Level 4 (82906) Complex EM visit Add On G2211 Diagnoses Depression F32.9 Anxiety F41.9 Chronic back pain M54.9; G89.29 Hypothyroid E03.9 Additional Codes JOZEF-7 Assessment Billing - JOZEF-7 Assessment Tool: JOZEF-7 Assessment 55545 ([id number])
[2024-01-02 16:35] VITALS: BP 138/88; PULSE 93; RESP 16; TEMP 36.5; O2SAT 95; BMI 36.3
== END 2024-01-02 17:00 | disposition home or self-care (01) ==
PROVIDERS: PCP Nurse Practitioner Family; Visit Provider Nurse Practitioner Family
DX: M54.9 Dorsalgia, unspecified (principal); F32.9 Major depressive disorder, single episode, unspecified; F41.9 Anxiety disorder, unspecified; G89.29 Other chronic pain; E03.9 Hypothyroidism, unspecified
CPT/HCPCS: 99214; G2211

== ENCOUNTER 2024-07-19 13:47 | Outpatient (REF) | payer MEDICARE, SELFPAY | END 2024-07-19 13:48 | disposition home or self-care (01) | LOC: HO.BBR 13:47 | PROVIDERS: PCP Nurse Practitioner Family; Visit Provider Internal Medicine | DX: Z13.89 Encounter for screening for other disorder (principal) ==

== ENCOUNTER 2024-07-23 13:32 | Outpatient (REF) | payer MEDICARE, SELFPAY ==
--- OUTSIDE RECORDS SUMMARY | 2024-07-23 15:58 | XMS_ITS | Clinical Summary ---
Author Organization [facility] Address [address] [place] [address] Care Team Providers Care Support Engineer Name Role Phone Cassandra Matta MD Primary Care Provider Unavail able Allergies Active Allergy Reactions Severity Noted Date Comments Tape 04/28/2016 Medications Medication Sig Dispensed Refills Start Date End Date Status escitalopram (LEXAPRO) 10 MG tablet Take 10 mg by mouth every other day. 0 Active ibuprofen (ADVIL,MOTRIN) 800 MG tablet Take 800 mg by mouth every 8 hours as needed. 0 Active buPROPion (WELLBUTRIN XL) 150 MG 24 hr tablet Take 150 mg by mouth every other day. 0 Active levothyroxine (SYNTHROID) 50 MCG tabletIndications:Acquire d hypothyroidism Take 1 Tab by mouth daily. 30 Tab 11 04/28/2016 Active lisinopril (PRINIVIL,ZESTRIL) 5 MG tabletIndications:Uncontr olled hypertension Take 1 Tab by mouth daily. 30 Tab 5 04/28/2016 Active Active Problems Problem Noted Date Uncontrolled hypertension 04/28/2016 H/O cocaine abuse 02/26/2016 Suicide attempt 02/26/2016 Overview: Was hospitalized for a month in a [facility] [place] for attempted [place] with [place] on the [place]. Most recent attempt was with atenolol and HCTZ overdose Recurrent major depressive disorder, in partial remission 02/26/2016 Alcohol abuse 02/26/2016 Misuse of prescription only drugs 2015 Overview: Has been discharged from Dr. Mack practice for violation of pain contract. Hereditary hemochromatosis Overview: Nib Adjuster (last phlebotomy May 2015) Chronic lower back pain Overview: degenerative joint disease, imaging at [facility] History of migraine headaches Hypertension Hypothyroidism Tobacco abuse Immunizations Name Administration Dates Next Due Tdap 04/28/2016 Family History Relation Name Status Comments Brother Alive estranged Daughter Alive Father Alive negative Mother Alive Sister 1 Alive estranged Sister 2 Alive estranged Son Alive Social History Tobacco Use Types Packs/Day Years Used Date Smoking Tobacco: Every Day Cigarettes 1 Started: 05/23/1995 Alcohol Use Standard Drinks/Week Comments Yes 0 (1 standard drink = 0.6 oz pure alcohol) former alcoholic of [place] (1 L per day) July 30 2015 Sex Assigned at Date Recorded Not on file Last Filed Vital Signs Vital Sign Reading Time Taken Comments Blood Pressure 160/100 04/28/2016 8:36 AM EST Pulse 88 04/28/2016 8:36 AM EST Temperature 36.8 ??C (98.2 ??F) 04/28/2016 8:36 AM ES T Respiratory Rate 20 04/28/2016 8:36 AM EST Oxygen Saturation - - Inhaled Oxygen Concentration - - Weight 127.1 kg (280 lb 1.6 oz) 04/28/2016 8:36 AM EST Height 180.3 cm (5' 11 ) 04/28/2016 8:36 AM EST Body Mass Index 39.07 04/28/2016 8:36 AM EST Plan of Treatment Health Maintenance Due Date Last Done Comments Covid-19 Vaccine (#1) 01/29/1979 TOBACCO CHECK/ADVISE 1996 DEPRESSION SCREEN 02/25/2017 02/26/2016 BASELINE HEALTH EXAM 40-64 2018 CHOLESTEROL SCREENING 02/25/2021 02/26/2016 INFLUENZA (#1) 2024 04/28/2016 (Refused) BMI CHECK/ADVISE 05/23/2024 04/28/2016, 02/26/2016 DTAP/TDAP/TD (2 - Td or Tdap) 04/28/2026 04/28/2016, 04/28/2016 PNEUMOCOCCAL VACCINE FOR HIG H RISK PATIENTS (#1) 07/30/2043 Insurance Payer Benefit Plan / Group Subscriber ID Effective Dates Phone Address Type MEDICARE- [place] [id number] 2013-Prese nt [address] [place] [phone] MEDICARE [id number] CE MEDIC[place] [id number] 2013-[facility] [address] [place] [phone] MEDICARE [id number] CE MEDICARE-M A MCR MCR F 1+/50% [id number] 2013-[facility] [address] [place] [address] MEDICARE [id number] MEDICAID-[place] [id number] 2013-[facility] [id number] [place] [employer] [address] [place] [address] MEDICAID [id number] CE Care Teams Support Engineer Relationship Specialty Start Date End Date Cassandra Matta MD PCP - General Internal Medicine 02/13/16
--- OUTSIDE RECORDS SUMMARY | 2024-07-23 15:58 | XMS_ITS | Clinical Summary ---
Author Organization [employer] Address [address] [place] [address] [address] [place] [address] Care Team Providers Care Pilot Boat Operator Name Role Phone Indira Pepe MD Primary Care Provide r Medications levothyroxine (Synthroid, Levoxyl) 25 MCG tabletIndication s:Hypothyroidism , unspecified type Take 1 tablet (25 mcg) by mouth before breakfast. 90 tablet 1 04/23/2022 Active Social History Tobacco Use Types Packs/Day Years Used Date Smoking Tobacco: Never Assessed Sex and Gender Information Value Date Recorded Sex Assigned at Male 03/22/2022 10:34 AM EDT Legal Sex Male 10:34 AM EDT Gender Identity Male 03/22/2022 10:34 AM EDT Sexual Orientation Don't know 03/22/2022 10 :34 AM EDT Last Filed Vital Signs Vital Sign Reading Time Taken Comments Blood Pressure 138/100 12/25/2021 12:08 AM EDT Pulse 72 12/25/2021 12:08 AM EDT Temperature - - Respiratory Rate - - Oxygen Saturation - - Inhaled Oxygen Concentration - - Weight 131 kg (288 lb 3.1 oz) 12/25/2021 12:08 A M EDT Height 182.9 cm (6') 12/25/2021 12:08 AM EDT Body Mass Index 39.09 12/25/2021 12:08 AM EDT Plan of Treatment Health Maintenance Due Date Last Done Comments CT Colonography 1978 Colonoscopy 1978 Colorectal Cancer Screening 1978 Depression Screening 1978 FIT DNA/Cologuard 1978 FIT 1978 FOBT 1978 Lipid Panel 1978 Sigmoidoscopy 1978 Alcohol/Substance Use Screening 1990 Tobacco Screening 1990 Family Planning (PISQ) 1993 Hepatitis B Vaccines (1 of 3 - 19+ 3-dose series) 1997 COVID-19 Vaccine ( - 2023-2 5 season) 2024 Influenza Vaccine (#1) 2024 DTaP/Tdap/Td Vaccines (2 - T d or Tdap) 03/29/2026 03/29/2016 Zoster Vaccines (1 of 2) 2028 RSV Patients and Pa tients Aged 60 years or older (1 - 1-dose 75+ series) 2053 HIB Vaccines Aged Out No longer eligi ble based on patient's age to complete this topic HPV Vaccines Aged Out No longer eligi ble based on patient's age to complete this topic Hepatitis A Vaccines Aged Out No long er eligible based on patient's age to complete this topic IPV Vaccines Aged Out No longer eligi ble based on patient's age to complete this topic Meningococcal Vaccine Aged Out No anna ricky eligible based on patient's age to complete this topic Pneumococcal Vaccine: Pediat rics (0 to 5 Years) and At-Risk Patients (6 to 49) Years) Aged Out No longer elig ible based on patient's age to complete this topic RSV under 20 months Aged Out No longe r eligible based on patient's age to complete this topic Rotavirus Vaccines Aged Out No longer eligible based on patient's age to complete this topic Care Teams Pilot Boat Operator Relationship Specialty Start Date End Date Indira Pepe MD [address] [place] [id number] PCP - General Internal Medicine 04/13/22
== END 2024-07-23 13:33 | disposition home or self-care (01) ==
LOC: HO.BBR 13:32
PROVIDERS: PCP Nurse Practitioner Family; Visit Provider Internal Medicine
DX: Z13.89 Encounter for screening for other disorder (principal)

== ENCOUNTER 2024-08-06 12:48 | Outpatient (REF) | payer MEDICARE, SELFPAY ==
[2024-08-06 14:17] LABS: Ferritin 228 ng/mL (20-250)
--- OUTSIDE RECORDS SUMMARY | 2024-08-06 14:54 | XMS_ITS | Clinical Summary ---
Author Organization [employer] Address [address] [place] [address] [address] [place] [address] Care Team Providers Care Impregnating Helper Name Role Phone Indira Pepe MD Primary [...] age to complete this topic Care Teams Impregnating Helper Relationship Specialty Start Date End Date Indira Pepe MD [address] [place] [id number] PCP - General Internal Medicine 04/13/22
== END 2024-08-06 12:49 | disposition home or self-care (01) ==
LOC: HO.BBR 12:48
PROVIDERS: PCP Nurse Practitioner Family; Visit Provider Internal Medicine
DX: E83.110 Hereditary hemochromatosis (principal)
CPT/HCPCS: 36415; 82728

== ENCOUNTER 2024-08-15 09:27 | Outpatient (AMB) | payer MEDICARE, SELFPAY ==
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
[2024-08-15 09:33] VITALS: BP 141/87; PULSE 103; RESP 16; TEMP 36.6; O2SAT 95; BMI 41.8
[2024-08-15 09:48] VITALS: BP 110/70; PULSE 104
== END 2024-08-15 10:02 | disposition home or self-care (01) ==
LOC: HO.HMCFM 09:28
PROVIDERS: PCP Nurse Practitioner Family; Visit Provider Nurse Practitioner Family
DX: E03.9 Hypothyroidism, unspecified (principal); F41.9 Anxiety disorder, unspecified; E66.01 Morbid (severe) obesity due to excess calories; Z68.41 Body mass index [BMI] 40.0-44.9, adult; F32.9 Major depressive disorder, single episode, unspecified

== ENCOUNTER 2024-08-15 09:27 | Outpatient (REF) | payer MEDICARE, SELFPAY ==
[2024-08-15 14:52] LABS: TSH reflex Free T4 9.92 uIU/mL (0.32-4.0)
[2024-08-15 15:29] LABS: Free T4 (Free Thyroxine) 1.14 ng/dL (0.71-1.85)
== END 2024-08-15 09:28 | disposition home or self-care (01) ==
LOC: HO.WFDLDS 09:27
PROVIDERS: PCP Nurse Practitioner Family; Visit Provider Nurse Practitioner Family
DX: E03.9 Hypothyroidism, unspecified (principal); F41.9 Anxiety disorder, unspecified; F32.9 Major depressive disorder, single episode, unspecified; E66.01 Morbid (severe) obesity due to excess calories; Z68.41 Body mass index [BMI] 40.0-44.9, adult; Z79.899 Other long term (current) drug therapy
CPT/HCPCS: 36415; 84439; 84443; 96127; 99212

== ENCOUNTER 2024-09-03 10:51 | Outpatient (AMB) | payer MEDICARE, SELFPAY ==
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
[2024-09-03 11:00] VITALS: BP 140/99; PULSE 88; RESP 16; TEMP 36.9; O2SAT 95; BMI 42.0
[2024-09-03 11:49] VITALS: BP 130/90
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
--- OUTSIDE RECORDS SUMMARY | 2024-09-03 12:41 | XMS_ITS | Clinical Summary ---
Author Organization [employer] Address [address] [place] [address] [address] [place] [address] Care Team Providers Care Shredding Machine Tender Name Role Phone Indira Pepe MD Primary [...] age to complete this topic Care Teams Shredding Machine Tender Relationship Specialty Start Date End Date Indira Pepe MD [address] [place] [id number] PCP - General Internal Medicine 04/13/22
== END 2024-09-03 11:57 | disposition home or self-care (01) ==
PROVIDERS: PCP Nurse Practitioner Family; Visit Provider Nurse Practitioner Family
DX: E03.9 Hypothyroidism, unspecified (principal); F32.9 Major depressive disorder, single episode, unspecified; E66.01 Morbid (severe) obesity due to excess calories; Z68.41 Body mass index [BMI] 40.0-44.9, adult; F41.1 Generalized anxiety disorder; M47.27 Other spondylosis with radiculopathy, lumbosacral region; M25.551 Pain in right hip; G89.29 Other chronic pain

== ENCOUNTER → 2024-09-03 10:51 | Outpatient (BNVA) | payer MEDICARE, SELFPAY | PROVIDERS: PCP Nurse Practitioner Family; Visit Provider Nurse Practitioner Family | DX: F32.A Depression, unspecified (principal); F41.1 Generalized anxiety disorder; M25.551 Pain in right hip; E03.9 Hypothyroidism, unspecified; M47.27 Other spondylosis with radiculopathy, lumbosacral region; G89.29 Other chronic pain; E66.01 Morbid (severe) obesity due to excess calories; F17.210 Nicotine dependence, cigarettes, uncomplicated; Z68.41 Body mass index [BMI] 40.0-44.9, adult | CPT/HCPCS: 96127; 99212 ==

== ENCOUNTER 2024-10-01 13:37 | Outpatient (REF) | payer MEDICARE, SELFPAY ==
--- OUTSIDE RECORDS SUMMARY | 2024-10-01 13:59 | XMS_ITS | Clinical Summary ---
Author Organization [employer] Address [address] [facility] [facility] [address] [place] [address] Care Team Providers Care Chief Projectionist Name Role Phone Indira Pepe MD Primary [...] - 19+ 3-dose series) 1997 COVID-19 Vaccine (2023-2 5 season) 2024 Influenza Vaccine (#1) 2024 [...] age to complete this topic Care Teams Chief Projectionist Relationship Specialty Start Date End Date Indira Pepe MD [address] [place] [phone] PCP - General Internal Medicine 04/13/22
[2024-10-01 15:03] LABS: TSH reflex Free T4 3.22 uIU/mL (0.32-4.0)
== END 2024-10-01 13:38 | disposition home or self-care (01) ==
LOC: HO.LAB 13:37
PROVIDERS: PCP Nurse Practitioner Family; Visit Provider Nurse Practitioner Family
DX: E03.9 Hypothyroidism, unspecified (principal)
CPT/HCPCS: 36415; 84443

== ENCOUNTER 2024-10-08 13:03 | Outpatient (REF) | payer MEDICARE, SELFPAY ==
--- OUTSIDE RECORDS SUMMARY | 2024-10-08 13:07 | XMS_ITS | Clinical Summary ---
Author Organization [employer] Address [address] [facility] [address] [place] [address] Care Team Providers Care Professional Nursing Tutor Name Role Phone Indira Pepe MD Primary [...] patient's age to complete this topic Meningococcal B Vaccine Aged Out No l onger eligible based on patient's age to complete [...] age to complete this topic Care Teams Professional Nursing Tutor Relationship Specialty Start Date End Date Indira Pepe MD [address] [place] [phone] PCP - General Internal Medicine 04/13/22
== END 2024-10-08 13:04 | disposition home or self-care (01) ==
LOC: HO.BBR 13:03
PROVIDERS: PCP Nurse Practitioner Family; Visit Provider Internal Medicine
DX: Z13.89 Encounter for screening for other disorder (principal)